=== PATIENT | male | born 1965 | race Two or more races ===

== ENCOUNTER 2023-03-03 02:01 | Inpatient (IN) | payer MEDICAID ==
[2023-03-03] VITALS (30 sets, daily range): BP systolic 77–177; BP diastolic 61–104; TEMP 98.4–100.1; O2SAT 91–100
[~2023-03-03] VITALS: Ht 167.6 cm; Wt 62.1 kg
--- NOTE | 2023-03-03 02:06 | NUR ---
BIBRA39 FROM AN APT BLDG FOUND BY ROOM MATE UNRESPONSIVE, SATTING 89% IN ROOM AIR, BS 198, APPEARS SHALLOW, ST ON EKG WITH HR 115. PT CAME WITH IV LINE AT RAC 18G, PATENT AND FLUSHING WELL. PT ATTACHED TO MONITOR AND PULSE OX. PT PLACED ON HIGH COREY'S, DR TAPIA AND RT AT BEDSIDE.
[2023-03-03] MEDS ORDERED: IOHEXOL-350 100 ML VIAL IV ONE (02:09)
[2023-03-03] MEDS ORDERED: CT SWABBABLE VALVE TRANS SET 1 EA INFUS.SET MC ONE (02:09)
[2023-03-03] MEDS ORDERED: IV NS 0.9% 250 ML IV ONE (02:09)
[2023-03-03] MEDS ORDERED: IOHEXOL-300 100 ML VIAL IV ONE (02:09)
--- NOTE | 2023-03-03 02:16 | NUR ---
PATIENT TAKEN TO CT VIA FLORECITA
[2023-03-03 03:17] LABS: BASOPHILS % (AUTO) 0.1 % (0.0-2.0); HEMATOCRIT 39 % (39-51); HEMOGLOBIN 12.7 g/dL (13.5-17.5); LYMPHOCYTES # (AUTO) 0.9 K/uL (0.8-4.8); LYMPHOCYTES % (AUTO) 5.1 % (20.0-44.0); MEAN CORPUSCULAR HGB CONC 33 g/dl (31.0-36.0); MEAN CORPUSCULAR VOLUME 94 fL (80-96); MONOCYTES # (AUTO) 0.7 K/uL (0.1-1.30); MONOCYTES % (AUTO) 4.2 % (2.0-12.0); NEUTROPHILS # (AUTO) 15.2 K/uL (1.8-8.9); NEUTROPHILS % (AUTO) 90.6 % (43.0-81.0); PLATELET COUNT (AUTO) 199 K/uL (150-450); RED BLOOD CELL COUNT(AUTO) 4.14 MIL/uL (4.5-6.0); WHITE BLOOD COUNT (AUTO) 16.8 K/uL (4.3-11.0)
[2023-03-03 03:22] LABS: BILIRUBIN,URINE NEGATIVE (NEGATIVE); COLOR,URINE YELLOW (YELLOW); LEUKOCYTE ESTERASE ,URINE NEGATIVE (NEGATIVE); NITRITE, URINE NEGATIVE (NEGATIVE); PROTEIN,URINE NEGATIVE (NEGATIVE); UGLUCOSE NEGATIVE (NEGATIVE); UROBILINOGEN,URINE 0.2 EU/dL (0.2)
[2023-03-03 03:27] LABS: CALCIUM, SERUM 8.7 mg/dL (8.5-10.1); CARBON DIOXIDE 24 mmol/L (21-32); CHLORIDE 109 mmol/L (98-107); CREATININE 1.5 mg/dL (0.6-1.3); GLUCOSE 175 mg/dL (74-106); POTASSIUM 4.3 mmol/L (3.5-5.1); SODIUM SERUM 141 mmol/L (136-145); UREA NITROGEN, BLOOD 26 mg/dL (7-18)
[2023-03-03 03:35] LABS: BACTERIA,URINE Few /HPF (None Seen); RBC,URINE 0-2 /HPF (0-2); SQUAMOUS EPITHELIAL CELL,UR None Seen /HPF (None Seen); WBC,URINE 0-2 /HPF (0-3)
[2023-03-03 03:41] LABS: ALANINE AMINOTRANSFERASE 33 U/L (12-78); ALBUMIN 2.7 g/dL (3.4-5.0); ALKALINE PHOSPHATASE 50 U/L (46-116); ASPARTATE AMINOTRANSFERASE 23 U/L (15-37); BILIRUBIN,DIRECT 0.2 mg/dL (0.0-0.2); BILIRUBIN,TOTAL 0.8 mg/dL (0.2-1.0); TOTAL PROTEIN, SERUM 6.5 g/dL (6.4-8.2)
--- NOTE | 2023-03-03 03:43 | NUR ---
CRITICAL RESULT RECEIVED FROM [facility]I OF LAB. LACTIC ACID 5.2. DR TAPIA AWARE. WITH ORDERS TO BE CARRIED OUT
--- NOTE | 2023-03-03 03:46 | NUR ---
RECEIVED CRITICAL REPORT FROM CHRISTI. PT PRO CALCITONIN IS 13.9. MADE AWARE
[2023-03-03] MEDS ORDERED: VANCOMYCIN 1 GM /D5W 250 ML PB IV ONE (03:50)
[2023-03-03] MEDS ORDERED: PIPERACI/TAZO 3.375GM/D5W 50ML PB IV ONE (03:51)
[2023-03-03] MEDS ORDERED: VANCOMYCIN 1 GM in IV D5W 250 ML IV ONE (04:00)
[2023-03-03] MEDS ORDERED: PIPERACILLIN /TAZOBACTAM 3.375 G in IV D5W 50 ML IV ONE (04:00)
[2023-03-03] MEDS ORDERED: IV NS 0.9% 1,000 ML IV PRN ×2 (04:00)
[2023-03-03] MEDS ORDERED: ENOXAPARIN SODIUM 100 MG/ML DISP.SYRIN SQ ONE (04:14)
[2023-03-03] MEDS ORDERED: ONDANSETRON HCL/PF 4 MG/2 ML VIAL IVP PRN (04:30)
[2023-03-03] MEDS ORDERED: MAGNESIUM HYDROXIDE 30 ML UDC PO PRN (04:30)
[2023-03-03] MEDS ORDERED: ENOXAPARIN SODIUM 60 MG/0.6 ML DISP.SYRIN SQ ONE (04:30)
[2023-03-03] MEDS ORDERED: MAG HYDROX/AL HYDROX/SIMETH 30 ML UDC PO PRN (04:30)
[2023-03-03] MEDS ORDERED: ZOLPIDEM TARTRATE 5 MG TABLET PO PRN (04:30)
[2023-03-03] MEDS ORDERED: Z GUARD REMEDY 4 OZ OINT TP PRN (04:30)
[2023-03-03] MEDS: IV D5/0.45 NACL 1,000 ML IV PRN ×2 (05:27→09:36)
[2023-03-03 05:39] LABS: ALCOHOL, BLOOD < 10 mg/dL (0-10)
[2023-03-03 05:50] LABS: SERUM AMMONIA 21 umol/L (11-32)
--- NOTE | 2023-03-03 07:21 | NUR ---
HANDOFF GIVEN TO CAMILLE RAPP.
--- NOTE | 2023-03-03 07:53 | NUR ---
RECIEVED BED FROM NURSING [facility] [address] LIGHT ROOM 256. ATTEMPTED TO GIVEN HAND OFF REPORT TO ICU. NURSE IS UNAVALIABLE. WILL REATTEMPT IN 5 MINUTES.
--- NOTE | 2023-03-03 08:29 | NUR ---
HAND OFF REPORT GIVEN TO DIONTE DENNIS IN ICU.
--- NOTE | 2023-03-03 09:06 | NUR ---
PATIENT TRANSFERRED TO ICU BED 256 PER ACLS PROTOCOL
[2023-03-03] MEDS: PANTOPRAZOLE 40 MG VIAL IV SCH (09:39)
--- NOTE | 2023-03-03 09:45 | NUR ---
PATIENT ADMITTED FROM ER WITH DIAGNOSIS OF EXTENSIVE BILATERAL PULMONARY EMBOLISM. PATIENT EXTREMELY RESTLESS UPON ADMISSION, MOVING BLE CONTINUOUSLY, MAKING LOUD NOISES, UNABLE TO FOLLOW SIMPLE COMMANDS. ON 100% NRBM-ST 140'S ON MONITOR. EVIDENCE OF VOMITUS ALL OVER MOUTH/CHEST AREA. TRANSFERRED FROM [facility] TO BED, REMAINS RESTLESS ALL OVER BED, O2 MASK KEPT INPLACED, ATTEMPTS TO POSITION COMFORTABLE IN BED TO NO AVAIL. REMAINS AGITATED, BILATERAL WRIST RESTRAINTS APPLIED TO KEEP MEDICAL DEVICES INPLACE. INDWELLING FC INSERTED WITH YELLOW URINE RETURN.
--- NOTE | 2023-03-03 10:35 | NUR ---
PATIENT INCREASINGLY AGITATED. MAKING LOUD NOISES. NOT FOLLOWING ANY SIMPLE COMMANDS.100% NRBM- SPO2 96%. ST 170'S. SPOKE TO DR. GTZ RE: PATIENT CONDITION. SATED TO BE HERE SHORTLY TO EVAL PATIENT.
[2023-03-03] MEDS ORDERED: LORAZEPAM INJ 2 MG/ML VIAL IV ONE (11:00)
[2023-03-03] MEDS ORDERED: HALOPERIDOL LACTATE INJ 5 MG/ML VIAL IM ONE (11:00)
--- NOTE | 2023-03-03 11:00 | NUR ---
ONGOING MD EVALUATION WITH DR. GTZ/ ER MD -DR. CONNOR. ATIVAN 2 MG IVP/HALDOL 5 MG IM STAT GIVEN FOR SEVERE AGITATION/RESTLESSNESS/ INCREASED HR 180'S.
--- NOTE | 2023-03-03 11:15 | NUR ---
PATIENT STARTED TO DESAT TO 80'S, ER MD STILL AT BEDSIDE WITH DR. GTZ, DECISIONON MADE TO INTUBATE PATIENT AT THIS POINT. RAPID SEQUENCE INTUBATION DONE SUCCESSFULLY ON 1ST ATTEMPT BY ER MD. CONNECTED TO FULL VENT SUPPORT.
[2023-03-03 11:26] LABS: ABG BASE EXCESS -8.1 mmol/L; ABG OXYGEN SATURATION 96.9 % (92.0-98.5); ABG PCO2 57.8 mmHg (35.0-45.0); ABG PH 7.176 (7.350-7.450); COHb 0.5 % (0.5-1.5); MetHb 0.6 % (0.0-1.5); O2Hb 95.8 % (94.0-97.0); SITE, ABG Right Radial; VENT MODE, BG NRB @15L
--- NOTE | 2023-03-03 11:35 | NUR ---
DR. ALFRED AT BEDSIDE FOR PULMO CONSULT.
[2023-03-03] MEDS: ZOSYN IVPB 3.375 G in IV D5W 50ml IV SCH ×2 (11:43→17:06)
--- NOTE | 2023-03-03 11:45 | NUR ---
OBTAINED ORDERS FROM DR. ALFRED FOR NS 2L BOLUS FOLLOWED BY 200 MLS/HR.
[2023-03-03] MEDS ORDERED: IV NS 0.9% 1,000 ML IV ONE ×2 (12:00→13:00)
[2023-03-03] MEDS: PROPOFOL 100 ML IV PRN ×2 (12:00→21:24)
--- NOTE | 2023-03-03 12:00 | NUR ---
PATIENT ARRIVED FROM ER VIA GURNEY ON NON REBREATHER MASK 10 L, O2 SATURATION BETWEEN 86-96 FLUCTUATING, PATIENT SO AGITATED AND RESTLESS, ACUTE MEDICAL RESTRAINS SOFT BILATERAL WRIST APPLIED FOR PATIENT'S SAFETY UNDER DR. GTZ'S ORDER. PATIENT STARTED DESATURATING TO 74% DR. ULISSES KAPADIAN DR. HAYES NOTIFIED THEY DECIDED TO INTUBATE THE PATIENT. PULMONARY PUT PATIENT ON SEDATION. PATIENT'S SKIN INTACT, PATIENT WAS NONRESPONSIVE BEFORE INTUBATION A/O X0. WILL MONITOR THE PATIENT THROUGHOUT THE SHIFT.
--- NOTE | 2023-03-03 12:00 | NUR ---
REMAINS TACHYCARDIC 140'S, OVERBREATHING VENT SET RATE, DIPRIVAN DRIP STARTED PER PROTOCOL.
[2023-03-03 12:01] LABS: BASOPHILS % (AUTO) 0.3 % (0.0-2.0); HEMATOCRIT 38 % (39-51); HEMOGLOBIN 12.4 g/dL (13.5-17.5); LYMPHOCYTES % (AUTO) 7.4 % (20.0-44.0); MEAN CORPUSCULAR HGB CONC 32 g/dl (31.0-36.0); MEAN CORPUSCULAR VOLUME 94 fL (80-96); MONOCYTES # (AUTO) 0.6 K/uL (0.1-1.30); MONOCYTES % (AUTO) 4.8 % (2.0-12.0); NEUTROPHILS # (AUTO) 11.6 K/uL (1.8-8.9); NEUTROPHILS % (AUTO) 87.5 % (43.0-81.0); PLATELET COUNT (AUTO) 184 K/uL (150-450); RED BLOOD CELL COUNT(AUTO) 4.06 MIL/uL (4.5-6.0); WHITE BLOOD COUNT (AUTO) 13.3 K/uL (4.3-11.0)
[2023-03-03] MEDS: IV NS 0.9% 1,000 ML IV PRN ×2 (13:40→19:23)
--- NOTE | 2023-03-03 14:00 | NUR ---
PATIENT'S SISTER IN LAW, SON, NIECE, AND HIS AUNT CAME TO VISIT THE PATIENT, THEY HAD A HARD TIME FINDING THE PATIENT BECAUSE HIS ROOMMATE GAVE PATIENT'S STEVEN NAME GUZMAN EVANS TO THE ER. PATIENT'S REAL NAME IS JOSSELIN ELLISON. PATIENT'S FAMILY TOOK PUT PATIENT'S DIRTY CLOTHS IN THE TRASH AND BROUGHT SOME NEW CLOTHS WHICH ARE DOCUMENTED IN THE BELONGINGS LIST AND PLACED IN PATIENT'S CHART.
[2023-03-03] MEDS ORDERED: SUCCINYLCHOLINE CHLORIDE 20 MG/ML VIAL IV ONE (14:44)
[2023-03-03] MEDS ORDERED: ETOMIDATE 2 MG/ML VIAL IV ONE (14:44)
[2023-03-03] MEDS: VANCOMYCIN 1 GM in IV D5W 250 ML IV SCH (15:48)
[2023-03-03] MEDS ORDERED: ENOXAPARIN SODIUM 60 MG/0.6 ML DISP.SYRIN SQ SCH ×2 (18:00→21:00)
--- NOTE | 2023-03-03 18:00 | NUR ---
SBP NOTED CONSISTENTLY LOW. OBTAINED ORDERS FROM DR. GTZ FOR CARLOS GTT FOR BP SUPPORT.
[2023-03-03] MEDS: PHENYLEPHRINE 50 MG in IV NS 0.9% 245 ML IV PRN (18:14)
--- NOTE | 2023-03-03 18:42 | NUR ---
RAMAN RN CLOSING NOTE PATIENT SEDATED AND INTUBATED IN BED WITH OXYGEN SATURATION 99% HOB 30 TO 40 DEGREE UP. BILATERAL SOFT WRIST RESTRAIN RENEW TOMORROW MORNING 1000 AM. PATIENT HAS ANGEL INSERTED IN THE MORNING AT 10AM DRAINING THERESA LOOKING URINE. SKIN INTACT, PATIENT ON NEOSY 0.5 MCG DUE TO LOW BP 75/63 STARTED AT 1800. ALSO ON PROPOFOL RATE 20 FOR SEDATION. ALL SAFETY PRECAUTIONS IMPLEMENTED AND PATIENT KEPT CLEAN AND DRY. WILL ENDORSE THE PATIENT TO THE METER TESTER PRIMARY NURSE FOR LORRAINE.
--- NOTE | 2023-03-03 20:13 | NUR ---
TOOL GRINDER OPERATOR EXTERNAL OPENING NOTE PT RECEIVED IN BED, SEDATED. PT WITH ETT SIZE 7.5, MARKED 23 CM AT THE LIP WITH SETTING OF AC 20, TV 500, FIO2 40%, PEEP 5 WITH CURRENT O2SAT OF 99%; NO S/S OF RESP DISTRESS, NO SOB, NON-LABORED AND EQUAL BREATHING; COUGH AND GAG REFLEX PRESENT. PT ATTACHED TO BEDSIDE MONITOR, ST WITH HR OF 125. ANGEL INTACT AND PATENT, DRAINING CLOUDY AND YELLOW URINE. BILATERAL SOFT WRIST RESTRAINTS IN PLACE WITH NO SIGNS OF IMPAIRED SKIN OR CIRCULATION. IV ACCESS ON LEFT WRIST 20G AND RAC 18G WITH PROPOFOL AT 20 MCG/KG/MIN, CARLOS NOW AT 0.4 MCG/KG/MIN AND NS AT 200 ML/HR. BED IN LOWEST POSITION, CALL LIGHT WITHIN REACH, SIDE RAILS UP X3. WILL CONTINUE TO MONITOR THROUGHOUT THE NIGHT.
[2023-03-03] MEDS: ENOXAPARIN SODIUM 60 MG/0.6 ML DISP.SYRIN SQ SCH (20:23)
[2023-03-04] VITALS (96 sets, daily range): BP systolic 77–149; BP diastolic 56–94; TEMP 96.5–99.7; O2SAT 95–100
[2023-03-04] MEDS: IV NS 0.9% 1,000 ML IV PRN ×2 (00:26→06:17)
[2023-03-04] MEDS: ZOSYN IVPB 3.375 G in IV D5W 50ml IV SCH ×5 (00:47→23:22)
[2023-03-04] MEDS: PROPOFOL 100 ML IV PRN ×4 (03:14→22:35)
[2023-03-04] MEDS: VANCOMYCIN 1 GM in IV D5W 250 ML IV SCH ×2 (03:44→16:09)
[2023-03-04 05:24] LABS: ABG OXYGEN SATURATION 97.2 % (92.0-98.5); ABG PCO2 29.8 mmHg (35.0-45.0); ABG PH 7.411 (7.350-7.450); ABG PO2 97.3 mmHg (75.0-100.0); AaDO2 153.6 mmHg; COHb 0.3 % (0.5-1.5); MetHb 0.2 % (0.0-1.5); O2Hb 96.7 % (94.0-97.0); SITE, ABG Right Radial
[2023-03-04 05:49] LABS: BASOPHILS % (AUTO) 0.4 % (0.0-2.0); EOSINOPHILS % (AUTO) 0.2 % (0.0-6.0); HEMATOCRIT 33 % (39-51); HEMOGLOBIN 10.8 g/dL (13.5-17.5); LYMPHOCYTES # (AUTO) 1.4 K/uL (0.8-4.8); LYMPHOCYTES % (AUTO) 12.6 % (20.0-44.0); MEAN CORPUSCULAR HGB CONC 33 g/dl (31.0-36.0); MEAN CORPUSCULAR VOLUME 94 fL (80-96); MONOCYTES # (AUTO) 0.5 K/uL (0.1-1.30); MONOCYTES % (AUTO) 4.7 % (2.0-12.0); NEUTROPHILS # (AUTO) 9.3 K/uL (1.8-8.9); NEUTROPHILS % (AUTO) 82.1 % (43.0-81.0); PLATELET COUNT (AUTO) 151 K/uL (150-450); RED BLOOD CELL COUNT(AUTO) 3.49 MIL/uL (4.5-6.0); WHITE BLOOD COUNT (AUTO) 11.3 K/uL (4.3-11.0)
[2023-03-04 05:59] LABS: CALCIUM, SERUM 7.7 mg/dL (8.5-10.1); CREATININE 0.9 mg/dL (0.6-1.3); PHOSPHORUS 1.4 mg/dL (2.5-4.9); POTASSIUM 3.7 mmol/L (3.5-5.1)
[2023-03-04 06:22] LABS: THYROID STIMULATING HORMONE 2.181 uIU/mL (0.358-3.74)
--- NOTE | 2023-03-04 06:59 | NUR ---
CENTRIFUGAL DRIER OPERATOR CLOSING NOTE PT REMAINS IN BED, SEDATED. CONTINUES TO BE ON SAME VENT SETTINGS; TOLERATING WELL WITH O2SAT RANGING FROM 98%-100% WITH NO S/S OF RESP DISTRESS, NO SOB, NON-LABORED AND EQUAL BREATHING. ATTACHED TO BEDSIDE MONITOR ST DURING BEGINNING OF SHIFT, NOW SR WITH HR IN THE 70S. ANGEL INTACT AND PATENT, DRAINING CLOUDY AND THERESA URINE. BILATERAL SOFT WRIST RESTRAINTS REMAIN IN PLACE; NO S/S OF IMPAIRED SKIN OR CIRCULATION; PROVIDED RELEASE OF RESTRAINTS AND HYGIENE. IV ACCESS LEFT WRIST 20G AND RAC 18G, PROPOFOL AT 35 MCG/KG/MIN, CARLOS AT 1 MCG/KG/MIN, AND NS AT 200 ML/HR. ALL DUE MEDS ADMINISTERED DURING THE NIGHT. BED IN LOWEST POSITION, CALL LIGHT WITHIN REACH, SIDE RAILS UP X3. WILL ENDORSE TO DAYSHIFT NURSE TO CONTINUE CARE.
[2023-03-04] MEDS ORDERED: POTASSIUM PHOSPHATE MM 15 MMOL in IV NS 0.9% 250 ML IV SCH (08:00)
--- NOTE | 2023-03-04 08:33 | NUR ---
RN NOTES NOTIFIED BOTH DR. GARSIA AND ULISSES THAT I RECEIVED CRITICAL LAB VALUE OF TROPONIN AT 1183 THIS MORNING UP FROM 182 FROM LAST NIGHT.
[2023-03-04] MEDS: IV LR 1000 ML 1,000 ML IV PRN ×2 (08:42→18:20)
[2023-03-04] MEDS: PANTOPRAZOLE 40 MG VIAL IV SCH (08:42)
[2023-03-04] MEDS: ENOXAPARIN SODIUM 60 MG/0.6 ML DISP.SYRIN SQ SCH ×2 (08:44→20:40)
[2023-03-04] MEDS: PHENYLEPHRINE 50 MG in IV NS 0.9% 245 ML IV PRN ×2 (11:17→22:01)
[2023-03-04] MEDS ORDERED: Sodium Phosphate 30 MMOL in IV NS 0.9% 250 ML IV ONE (13:00)
[2023-03-04] MEDS ORDERED: LORA-259 PO (16:12)
[2023-03-04] MEDS ORDERED: PREG50CA PO (16:12)
[2023-03-04] MEDS ORDERED: TRIH2TAB3 PO (16:12)
[2023-03-04] MEDS ORDERED: GABA-536 PO (16:12)
[2023-03-04] MEDS ORDERED: BUPR1PAT21 TD (16:12)
[2023-03-04] MEDS ORDERED: TIZA4TAB5 PO (16:12)
[2023-03-04] MEDS ORDERED: BACL20TA PO (16:12)
[2023-03-04] MEDS ORDERED: ATOR20TA PO (16:12)
--- NOTE | 2023-03-04 19:13 | NUR ---
RN NOTES PT LOOKS COMFORTABLE, NO VISUAL SIGNS OF PAIN, ALL DUE MEDS GIVEN. STILL ON DIPRIVAN AT RATE OF 35 MCG/KG/HR, CARLOS AT 1 MCG/KG/HR AND INTUBATED. NO ISSUES AT THIS TIME. REPORT GIVEN TO PRINCESS RAPP FOR CONTINUATION OF CARE.
--- NOTE | 2023-03-04 20:00 | NUR ---
TANK TERMINAL GAUGER OPENING NOTE PT RECEIVED IN BED, SEDATED. PT WITH ETT SIZE 7.5, MARKED 23 CM AT THE LIP, AC 20, TV 500, FIO2 30%, PEEP 5 WITH CURRENT O2SAT OF 99%; NO S/S OF RESP DISTRESS, NO SOB, NON-LABORED AND EQUAL BREATHING. PT ATTACHED TO BEDSIDE MONITOR, SR WITH HR OF 84. ANGEL INTACT AND PATENT, DRAINING CLOUDY AND THERESA URINE. BILATERAL SOFT WRIST RESTRAINTS IN PLACE; NO SIGNS OF IMPAIRED SKIN OR CIRCULATION. IV ACCESS ON LEFT WRIST 20G AND RAC 18G, PROPOFOL AT 30 MCG/KG/MIN, CARLOS AT 1.2 MCG/KG/MIN, AND LR AT 100 ML/HR. BED IN LOWEST POSITION, CALL LIGHT WITHIN REACH, SIDE RAILS UP X3. WILL CONTINUE TO MONITOR THROUGHOUT THE NIGHT.
--- NOTE | 2023-03-04 20:02 | NUR ---
RT AT BEDSIDE, COLLECTED SPECIMEN FOR SPUTUM CULTURE. LAB CALLED FOR CURATOR OF COLLECTIONS.
--- NOTE | 2023-03-04 21:18 | NUR ---
RN NOTE RECEIVED CRITICAL FROM LAB. BLOOD CULTURE RESULTED IN GRAM POSITIVE IN COCCI. BUDDY BUENROSTRO NOTIFIED ALONG WITH CURRENT ABX PT IS RECEIVING. NO NEW ORDERS RECEIVED
[2023-03-05] VITALS (65 sets, daily range): BP systolic 86–154; BP diastolic 64–92; TEMP 96.1–99.1; O2SAT 92–100
[2023-03-05] MEDS: VANCOMYCIN 1 GM in IV D5W 250ml IV SCH ×3 (00:47→16:55)
[2023-03-05 04:21] LABS: BASOPHILS # (AUTO) 0.1 K/uL (0.0-0.2); BASOPHILS % (AUTO) 0.6 % (0.0-2.0); EOSINOPHILS % (AUTO) 1.8 % (0.0-6.0); HEMATOCRIT 30 % (39-51); LYMPHOCYTES # (AUTO) 1.3 K/uL (0.8-4.8); LYMPHOCYTES % (AUTO) 12.7 % (20.0-44.0); MEAN CORPUSCULAR HGB CONC 33 g/dl (31.0-36.0); MEAN CORPUSCULAR VOLUME 93 fL (80-96); MONOCYTES # (AUTO) 0.6 K/uL (0.1-1.30); MONOCYTES % (AUTO) 6.2 % (2.0-12.0); NEUTROPHILS % (AUTO) 78.7 % (43.0-81.0); PLATELET COUNT (AUTO) 147 K/uL (150-450); RED BLOOD CELL COUNT(AUTO) 3.23 MIL/uL (4.5-6.0); WHITE BLOOD COUNT (AUTO) 10.2 K/uL (4.3-11.0)
[2023-03-05 04:34] LABS: CALCIUM, SERUM 7.7 mg/dL (8.5-10.1); CREATININE 0.7 mg/dL (0.6-1.3); POTASSIUM 3.2 mmol/L (3.5-5.1)
[2023-03-05] MEDS: PROPOFOL 100 ML IV PRN ×4 (05:10→23:09)
[2023-03-05] MEDS: IV LR 1000 ML 1,000 ML IV PRN ×2 (05:20→17:02)
[2023-03-05] MEDS: ZOSYN IVPB 3.375 G in IV D5W 50ml IV SCH ×4 (05:58→23:01)
--- NOTE | 2023-03-05 06:41 | NUR ---
AEROSPACE QUALITY ENGINEER CLOSING NOTE PT REMAINS IN BED, SEDATED. CONTINUES TO BE ON SAME VENT SETTINGS, TOLERATING WELL WITH O2SAT RANGING FROM 95%-100%; NO S/S OF RESP DISTRESS, NO SOB, NON-LABORED AND EQUAL BREATHING. ATTACHED TO BEDSIDE MONITOR, SR WITH HR RANGING FROM 62-87. ANGEL INTACT AND PATENT, DRAINING THERESA AND CLOUDY URINE. BILATERAL SOFT WRIST RESTRAINTS REMAIN IN PLACE; PROVIDED PT WITH RELEASE OF RESTRAINTS AND HYGIENE; NO SIGNS OF IMPAIRED SKIN OR CIRCULATION. LEFT WRIST 20G AND RAC 18G; PROPOFOL AT 30 MCG/KG/MIN, CARLOS AT 1.0 MCG/KG/MIN, AND LR AT 100 ML/HR. ALL DUE MEDS ADMINISTERED DURING THE NIGHT. BED IN LOWEST POSITION, CALL LIGHT WITHIN REACH, SIDE RAILS UP X3. WILL ENDORSE TO DAYSHIFT NURSE TO CONTINUE CARE.
--- NOTE | 2023-03-05 07:50 | NUR ---
RT PATIENT REC'D ORALLY INTUBATED ON [facility] VENT WITH ORDERED SETTINGS GRANT WELL. NO WEANING ORDERS FOR PATIENT. SEDATION TURNED OFF AND PATIENT COULD NOT FOLLOW COMMANDS AND RR INCREASED TO HIGH 30'S. PLACED BACK ON SEDATION. ETT SECURE AND PATENT. AMBU BAG AT [facility]. VENT ALARMS CHECKED + AUDIBLE. Addendum: 03/05/23 at 1758 by YVETTE RIOJAS RT Amended: Links added.
[2023-03-05] MEDS: PANTOPRAZOLE 40 MG VIAL IV SCH (08:41)
[2023-03-05] MEDS: ENOXAPARIN SODIUM 60 MG/0.6 ML DISP.SYRIN SQ SCH ×2 (08:57→20:21)
[2023-03-05] MEDS: POTASSIUM CL. PREMIX PERIPHER. 50 ML IV SCH ×4 (10:49→15:55)
--- NOTE | 2023-03-05 19:05 | NUR ---
RN CLOSING NOTES PATIENT LOOKS COMFORTABLE, NO VISUAL SIGNS OF PAIN, ALL DUE MEDS GIVEN. PATIENT STILL ON DIPRIVAN AT 35 MCG/KG/HR, BUT OFF CARLOS. ATTEMPTED TO EXTUBATE PATIENT TODAY, BUT PATIENT UNABLE TO FOLLOW COMMANDS OR TRACK MOVEMENT. REPORT GIVEN TO ANGY RAPP FOR CONTINUATION OF CARE.
--- NOTE | 2023-03-05 19:30 | NUR ---
PT SEDATED. ON [facility] VENT SEETINGS PRESCRIBED, TOLERATING WELL. SHOWING SR ON CENTRAL PROCESSING TECHNICIAN. ON NPO STATUS. ANGEL CATHETER IN PLACE. IV ACCESS ON LT WRIST # 20G, RAC #18G INFUSING LR @ 100ML/HR AND DIPRIVAN TITRATED PER PROTOCOL. SAFETY MEASURES IN PLACE. HOB ELEVATED. WILL CONTINUE PLAN OF CARE.
[2023-03-06] VITALS (43 sets, daily range): BP systolic 88–173; BP diastolic 65–94; TEMP 96.7–99.8; O2SAT 94–100
[2023-03-06] MEDS: VANCOMYCIN 1 GM in IV D5W 250ml IV SCH ×2
[2023-03-06 04:59] LABS: BASOPHILS % (AUTO) 0.4 % (0.0-2.0); HEMATOCRIT 33 % (39-51); HEMOGLOBIN 10.7 g/dL (13.5-17.5); LYMPHOCYTES # (AUTO) 1.2 K/uL (0.8-4.8); MEAN CORPUSCULAR HGB CONC 32 g/dl (31.0-36.0); MEAN CORPUSCULAR VOLUME 100 fL (80-96); MONOCYTES # (AUTO) 0.5 K/uL (0.1-1.30); MONOCYTES % (AUTO) 8.1 % (2.0-12.0); NEUTROPHILS # (AUTO) 4.8 K/uL (1.8-8.9); NEUTROPHILS % (AUTO) 70.5 % (43.0-81.0); PLATELET COUNT (AUTO) 143 K/uL (150-450); RED BLOOD CELL COUNT(AUTO) 3.33 MIL/uL (4.5-6.0); WHITE BLOOD COUNT (AUTO) 6.8 K/uL (4.3-11.0)
[2023-03-06] MEDS: IV LR 1000 ML 1,000 ML IV PRN ×2 (05:01→19:11)
[2023-03-06] MEDS: PROPOFOL 100 ML IV PRN ×3 (05:02→18:44)
[2023-03-06 05:09] LABS: CREATININE 0.9 mg/dL (0.6-1.3); POTASSIUM 3.5 mmol/L (3.5-5.1)
[2023-03-06] MEDS: ZOSYN IVPB 3.375 G in IV D5W 50ml IV SCH ×4 (05:38→23:00)
--- NOTE | 2023-03-06 07:10 | NUR ---
HAND OVER REPORT GIVEN TO WENDY RAPP FOR CONTINUITY OF CARE.
--- NOTE | 2023-03-06 08:00 | NUR ---
RN NOTES SEDATION VACATION STARTED FOR PATIENT.
--- NOTE | 2023-03-06 08:05 | NUR ---
RN NOTES NOTIFIED PHARMACY THAT LATEST VANCO THROUGH IS AT 21. PHARMACIST AWARE AND WILL LOWER DOSE TO BE GIVEN.
[2023-03-06] MEDS: PANTOPRAZOLE 40 MG VIAL IV SCH (08:10)
[2023-03-06] MEDS: ENOXAPARIN SODIUM 60 MG/0.6 ML DISP.SYRIN SQ SCH ×2 (08:11→21:15)
[2023-03-06] MEDS: VANCOMYCIN HCL 0.75 GM in IV D5W 250 ML IV SCH ×2 (09:27→16:28)
[2023-03-06] MEDS ORDERED: BUMETANIDE INJ 0.25 MG/ML VIAL IV ONE (19:00)
[2023-03-07] VITALS (33 sets, daily range): BP systolic 118–168; BP diastolic 76–103; TEMP 98–99.1; O2SAT 95–100
[2023-03-07] MEDS: PROPOFOL 100 ML IV PRN ×3 (01:00→10:42)
[2023-03-07] MEDS: hydrALAZINE HCL IV 20 MG VIAL IV PRN (03:59)
[2023-03-07 04:14] LABS: BASOPHILS % (AUTO) 0.5 % (0.0-2.0); EOSINOPHILS % (AUTO) 4.3 % (0.0-6.0); HEMATOCRIT 31 % (39-51); HEMOGLOBIN 10.4 g/dL (13.5-17.5); LYMPHOCYTES % (AUTO) 13.4 % (20.0-44.0); MEAN CORPUSCULAR HGB CONC 34 g/dl (31.0-36.0); MEAN CORPUSCULAR VOLUME 92 fL (80-96); MONOCYTES # (AUTO) 0.6 K/uL (0.1-1.30); MONOCYTES % (AUTO) 8.1 % (2.0-12.0); NEUTROPHILS # (AUTO) 5.5 K/uL (1.8-8.9); NEUTROPHILS % (AUTO) 73.7 % (43.0-81.0); PLATELET COUNT (AUTO) 171 K/uL (150-450); RED BLOOD CELL COUNT(AUTO) 3.34 MIL/uL (4.5-6.0); WHITE BLOOD COUNT (AUTO) 7.5 K/uL (4.3-11.0)
[2023-03-07 04:27] LABS: CALCIUM, SERUM 8.2 mg/dL (8.5-10.1)
[2023-03-07 04:31] LABS: POTASSIUM 2.7 mmol/L (3.5-5.1)
[2023-03-07] MEDS: ZOSYN IVPB 3.375 G in IV D5W 50ml IV SCH (05:02)
[2023-03-07 05:06] LABS: ABG BASE EXCESS -0.4 mmol/L; ABG OXYGEN SATURATION 93.8 % (92.0-98.5); ABG PCO2 24.6 mmHg (35.0-45.0); ABG PH 7.545 (7.350-7.450); ABG PO2 67.3 mmHg (75.0-100.0); AaDO2 117.7 mmHg; COHb 0.2 % (0.5-1.5); MetHb 0.2 % (0.0-1.5); O2Hb 93.4 % (94.0-97.0); PEEP,BG 5 cm H2O; SITE, ABG Right Radial
[2023-03-07] MEDS: POTASSIUM CL. PREMIX PERIPHER. 50 ML IV SCH ×6 (06:00→11:10)
--- NOTE | 2023-03-07 07:05 | NUR ---
MECHANICAL ENGINEERING COOP NOTE Patient is intubated and sedated. GCS [id number], sedated by propofol at 45mcg/kg/min, bilateral pupils 3mm PEARLA. telemetry monitor showed SR HR 60s/min. SBP>90mmHg and MAP>65mmHg without vasopressor use. Intubated by size 7.5 ETT, marking at lip 23 cm. Ventilated by AC mode rate 20, TV 500mL, SpO2 >90% with FiO2 30%. Right AC is dry and intact, patent upon flush, with propofol running. Left hand IV site is dry and intact, patent with NS flush. Bilateral hands circulation is good with restraints use. Suction, oral care and repositioning is done. Keep monitoring and care.
[2023-03-07] MEDS: PANTOPRAZOLE 40 MG VIAL IV SCH (09:06)
[2023-03-07] MEDS: VANCOMYCIN HCL 0.75 GM in IV D5W 250 ML IV SCH ×4 (09:08→17:22)
[2023-03-07] MEDS: ENOXAPARIN SODIUM 60 MG/0.6 ML DISP.SYRIN SQ SCH ×2 (09:15→20:31)
[2023-03-07 10:05] LABS: POTASSIUM 3.2 mmol/L (3.5-5.1)
--- NOTE | 2023-03-07 10:48 | NUR ---
PACK PRESS OPERATOR NOTE - Sedation vacation Reduced propofol sedation from 45 to 20mcg/kg/min since 10:00. Patient is awake and alert, with eye opening upon request. He is following commands and calm. monitoring and evaluation advisor showed SR HR 70/min, RR 21/min, BP ~155/90mmHg. Will continue observation for readiness to try weaning.
--- NOTE | 2023-03-07 11:25 | NUR ---
TUBE TELLER NOTE Called social media marketing manager but in vain for the request of document for family.
--- NOTE | 2023-03-07 12:24 | NUR ---
INDUSTRIAL TRUCK DRIVER NOTE - Plan for weaning TYE Hernandez came and visited patient, clnical condition updated with him. He ordered IV bumex to be given prior to weaning. Switched to CPAP mode with PS 10 mmHg. ABG 2 hours after mode switching. Would inform RT once bumex is given. Addendum: 03/07/23 at 1226 by SEE TIERNEY LANGE RN Also, TYE Hernandez would like propofol to be kept at 20 mcg/kg/min for weaning mode. Would monitor patient's respiratory status and neurlogical status accordingly.
[2023-03-07] MEDS ORDERED: BUMETANIDE INJ 0.25 MG/ML VIAL IV ONE (12:30)
--- NOTE | 2023-03-07 12:41 | NUR ---
PLANT CULTURE MANAGER NOTE Switched to CPAP mode at 12:30, with PS 15 cm H20, rate of 5/min. Fio2 30%
[2023-03-07] MEDS: PIPERACILLIN /TAZOBACTAM 3.375 G in IV D5W 100 ML IV SCH ×2 (13:53→20:30)
--- NOTE | 2023-03-07 14:16 | NUR ---
HARPOON ENGAGEMENT PLANNING OPERATOR NOTE Called neonatal social worker but in vain for the request of document for family. Voice message was left.
--- NOTE | 2023-03-07 15:41 | NUR ---
WELCOME WAGON HOST/HOSTESS Note - extubation 2 hours post CPAP ABG was taken at 15:15, showing good oxygenation. Stopped propofol at 15:25, would proceed for extubation 10 minutes afterwards, as ordered by TYE Hernandez. Suction was done by RT, extubated at 15:40. Spo2 100% with RR ~ 20/min with 6L oxygen via NC. Will continue monitoring.
--- NOTE | 2023-03-07 15:43 | NUR ---
PER DR. MCFARLAND ORDERED EXTUBATION BASED ON THE ABG RESULT. LEAK TEST PERFORMED AND WAS SUCTION BEFORE AND AFTER EXTUBATION. BILATERAL CHEST RISE NOTE WITH EQUAL BREATH SOUND NOTED. PATIENT PLACED ON 6 L O2 AFTER EXTUBATION WITH SAT OF 100%. PATIENT WILL CONTINUE TO BE MONITOR.. PATIENT PLACED OF CPAP MODE FOR 2 HOURS BEFORE THE ORDER FOR EXTUBATION. Addendum: 03/07/23 at 1549 by SAMMY BURROUGHS RT Amended: Links added.
[2023-03-07 16:12] LABS: ABG BASE EXCESS 0.3 mmol/L; ABG OXYGEN SATURATION 96.4 % (92.0-98.5); ABG PCO2 27.7 mmHg (35.0-45.0); ABG PO2 85.2 mmHg (75.0-100.0); AaDO2 96.2 mmHg; COHb 0.2 % (0.5-1.5); MetHb 0.3 % (0.0-1.5); O2Hb 95.9 % (94.0-97.0); PEEP,BG 5 cm H2O; SITE, ABG Left Femoral
[2023-03-07] MEDS: IV LR 1000 ML 1,000 ML IV PRN (17:29)
--- NOTE | 2023-03-07 18:54 | NUR ---
WASHER OPERATOR NOTE Patient's SpO2 >95% with 4L oxygen via NC, RR 25-30/min. color television console monitor showed SR all along HR 90s'/min.
[2023-03-08] VITALS (16 sets, daily range): BP systolic 123–160; BP diastolic 65–88; TEMP 98–98.8; O2SAT 94–100
[2023-03-08] MEDS: VANCOMYCIN HCL 0.75 GM in IV D5W 250 ML IV SCH ×3 (02:00→17:14)
[2023-03-08] MEDS: PIPERACILLIN /TAZOBACTAM 3.375 G in IV D5W 100 ML IV SCH ×3 (04:30→20:52)
[2023-03-08 04:50] LABS: CALCIUM, SERUM 8.3 mg/dL (8.5-10.1)
[2023-03-08 05:21] LABS: POTASSIUM 2.7 mmol/L (3.5-5.1)
[2023-03-08] MEDS: POTASSIUM CL. PREMIX PERIPHER. 50 ML IV SCH ×7 (05:59→11:06)
--- NOTE | 2023-03-08 06:20 | NUR ---
LAPPER NOTED BUE WARM TO TOUCH; NOTIFIED MD Riley/ORDERS FOR BUE US.
--- NOTE | 2023-03-08 07:35 | NUR ---
BRIAR CUTTER NOTE Patient is resting in bed without active complaint. GCS [id number], bilateral pupils 3mm PEARLA. desk monitor showed SR HR 82/min. SBP>90mmHg and MAP>65mmHg without vasopressor use. SpO2 >95% with 4L oxygen via NC. Right AC and right upper arm midline is dry and intact, patent upon flush. Left hand IV site is dry and intact, patent with NS flush. Bilateral hands circulation is good, strong pulsation but noted that arms are very warm, not tender upon touch. Repositioning is done. Keep monitoring and care.
[2023-03-08] MEDS: ENOXAPARIN SODIUM 60 MG/0.6 ML DISP.SYRIN SQ SCH (08:05)
[2023-03-08] MEDS: PANTOPRAZOLE 40 MG VIAL IV SCH (08:05)
--- NOTE | 2023-03-08 11:07 | NUR ---
YARD MOTOR OPERATOR NOTE Webster is removed. Await urination and would check PVRU accordingly.
--- NOTE | 2023-03-08 13:10 | NUR ---
ADMINISTRATIVE ASSOCIATE NOTE Patient is for transfer to telemetry unit. Handover was given to DIONTE Valverde for continuity of care. Patient's aunt accompanied patient to RAMAN 114-2.
--- NOTE | 2023-03-08 13:30 | NUR ---
CARDIOGRAPH OPERATOR NOTE Patient smith sfered from ICU .Alert , oriented times 3 , arabic speaking laboratory monitor showed SR HR 82/min. o2 sat 98 % on 4L oxygen via NC. Right AC and right upper arm midline is dry and intact,NS and Potasium Chloride running at 75 ml;/hrLeft hand IV site is dry and intact, patent with NS flush. Bilateral hands circulation is good,patient is on pure diet will continue to monitor
[2023-03-08] MEDS: ACETAMINOPHEN 325 MG TABLET PO PRN ×2 (13:45→20:50)
[2023-03-08] MEDS: Potassium Chloride 40 MEQ in IV NS 0.9% 1,000 ML IV SCH (17:14)
--- NOTE | 2023-03-08 19:13 | NUR ---
RN closing note Patient is Alert , oriented times 3 , [place] Citizen speaking library monitor showed SR HR 82/min. o2 sat 98 % on 4L oxygen via NC. Right AC and right upper arm midline is dry and intact,NS and Potasium Chloride running at 75 ml;/hr Left hand IV site is dry and intact, patent with NS flush. Bilateral hands circulation is good,patient is on pure diet . All medications were administred all needs were met , will endorse maintenance mechanic 2nd shift nurse to fallow poc
--- NOTE | 2023-03-08 20:00 | NUR ---
FOLDER SEAMER AUTOMATIC 0PENING note Patient is Alert , oriented times 3 , Singaporean speaking workforce staffing advisor showed SR HR 82/min. o2 sat 98 % on 2L oxygen via NC. Right AC and right upper arm midline is dry and intact,NS and Potasium Chloride running at 75 ml;/hr Left hand IV site is dry and intact, patent with NS flush. Bilateral hands circulation is good,patient is on pure diet . All due medications given as ordered all needs attended too call light within reach v/s stable afebrile no sob no distress noted ,will contkimnue to monitor pts.Son at bedside updated with pts condition.will continue to monitor pts.
[2023-03-08] MEDS: RIVAROXABAN 15 MG TABLET PO SCH (20:51)
[2023-03-09] VITALS: BP 141/90; TEMP 98.6; O2SAT 96
[2023-03-09] MEDS: VANCOMYCIN HCL 0.75 GM in IV D5W 250 ML IV SCH ×2 (01:43→08:20)
[2023-03-09 04:00] VITALS: BP 143/85; TEMP 98.6; O2SAT 93
[2023-03-09] MEDS: PIPERACILLIN /TAZOBACTAM 3.375 G in IV D5W 100 ML IV SCH (05:10)
--- NOTE | 2023-03-09 07:30 | NUR ---
RN NOTE RECEIVED PATIENT IN BED RESTING ALERT ORIENTEDX2-3 VERBALLY RESPONSIVE ON 2L OXYGEN VIA NASAL CANNULA,IV ACCESS ONE IKER AND RAC AND LEFT HAND INTACT PATENT ON IV HYDRATION NS WITH POTASSIUM CHLORIDE 70CC/HR INCONTINENT BOWEL/BLADDER SAFETY MEASURE IMPLEMENT BED IN LOW POSITION AND LOCKED CALL LIGHT,HEAD OF THE BED ELEVATED,CALL LIGHT WITHIN REACH CONTINUE TO MONITOR
[2023-03-09] MEDS: Potassium Chloride 40 MEQ in IV NS 0.9% 1,000 ML IV SCH (07:31)
--- NOTE | 2023-03-09 07:37 | NUR ---
RAMP FLIGHT ATTENDANT closing note Patient is Alert , oriented times 3 , Estonian speaking media monitor showed SR HR 92/min. o2 sat 98 % on R/A . Right AC and right upper arm midline is dry and intact,NS and Potasium Chloride running at 75 ml;/hr Left hand IV site is dry and intact, patent with NS flush. all needs were met , will endorse TO NEXT SHIFT FOR CONTINUE OF CARE
[2023-03-09 07:51] LABS: CALCIUM, SERUM 8.3 mg/dL (8.5-10.1); CREATININE 0.7 mg/dL (0.6-1.3); POTASSIUM 3.2 mmol/L (3.5-5.1)
[2023-03-09 08:00] VITALS: BP 176/99; TEMP 98.1; O2SAT 97
[2023-03-09] MEDS: RIVAROXABAN 15 MG TABLET PO SCH ×2 (08:13→21:22)
[2023-03-09] MEDS: PANTOPRAZOLE 40 MG TABLET.DR PO SCH (08:14)
[2023-03-09] MEDS: hydrALAZINE HCL IV 20 MG VIAL IV PRN ×2 (08:57→16:51)
[2023-03-09] MEDS ORDERED: POTASSIUM CHLORIDE 20 MEQ POWDER PACKET PO ONE (11:00)
[2023-03-09 12:00] VITALS: BP 163/90; TEMP 98.4; O2SAT 99
[2023-03-09] MEDS: CEFTRIAXONE 1 G in IV D5W 50 ML IV SCH (13:02)
[2023-03-09 16:00] VITALS: BP 165/94; TEMP 98.2; O2SAT 97
--- NOTE | 2023-03-09 18:55 | NUR ---
RN NOTE PATIENT REMAINS ALERT ORIENTEDX2-3 VERBALLY RESPONSIVE NO SOB NOT ACUTE DISTRESS NOTED,ALL DUE MEDS GIVEN MD ORDERED KEPT CLEAN AND DRY ALL THE TIME,KEPT COMFORTABLE ENDORSE NEXT UPCOMING SHIFT FOR CONTINUATION OF CARE.
[2023-03-09 20:00] VITALS: BP 157/79; TEMP 98.3; O2SAT 97
--- NOTE | 2023-03-09 20:16 | NUR ---
AUTO CARE CENTER MANAGER OPENING NOTE PATIENT RECIVED IN BED AWAKE ALERT ORIENTED X2-3 VERBALLY RESPONSIVE . VITALS STABLE, AFEBRILE, WITH O2 SAT ON NASAL CANULA AT 2L 96%. WITH IV ACCESS OF RIGHT UPPER ACCESS MIDLINE AND RUNNING AT POTASSIUM CHLORIDE 40 mEQ IV AT 70CC/HR AND LEFT WRIST PATENT INTACT FLUSHES AND NO SIGN OF INFILTRATION. ON RAC IV ACCESS REDNESS NOTED NOT PATENT AND NO BLOOD RETURNED, INFILTRATION NOTED REMOVED CLEAN AND PUT DRESSING. PATIENT IS ON PUREED DIET TOLERATED.PROVIDE SAFETY MEASURE, BED IN LOW SETTING FALL PRECAUTION PROVIDED. CALL LIGHT WITH IN REACH.
[2023-03-10] VITALS: BP 143/82; TEMP 98; O2SAT 97
[2023-03-10] MEDS: Potassium Chloride 40 MEQ in IV NS 0.9% 1,000 ML IV SCH (01:12)
[2023-03-10 04:00] VITALS: BP 140/76; TEMP 98.2; O2SAT 98
--- NOTE | 2023-03-10 06:49 | NUR ---
FOURDRINIER TENDER CLOSING NOTE PATIENT IN BED. ALERT ORIENTED X2-3 VERBALLY RESPONSIVE . VITALS STABLE, AFEBRILE, WITH O2 SAT ON NASAL CANULA AT 2L 96%. WITH IV ACCESS OF RIGHT UPPER ACCESS MIDLINE AND RUNNING AT POTASSIUM CHLORIDE 40 mEQ IV AT 70CC/HR AND LEFT WRIST PATENT INTACT FLUSHES AND NO SIGN OF INFILTRATION. ON RAC IV ACCESS REDNESS NOTED NOT PATENT AND NO BLOOD RETURNED, INFILTRATION NOTED REMOVED CLEAN AND PUT DRESSING. PATIENT IS ON PUREED DIET TOLERATED. ALL MEDS GIVE. PROVIDE SAFETY MEASURE,HEAD OF BED ELEVATED FOR ASPIRATION PRECAUTION. BED IN LOW SETTING FALL PRECAUTION PROVIDED. CALL LIGHT WITH IN REACH. ENDORSE TO DAY SHIFT RN.
--- NOTE | 2023-03-10 07:30 | NUR ---
INTERNAL AUDIT MANAGER OPENING NOTE RECEIVED PATIENT IN BED ALERT ORIENTED X2-3 VERBALLY RESPONSIVE. ON 2L SATING >95%.NO SOB NOTED. RESPIRATION EVEN AND UNLABORED. WITH IV ACCESS OF RIGHT UPPER ACCESS MIDLINE, LEFT WRIST PATENT INTACT FLUSHES AND NO SIGN OF INFILTRATION. ON TELE MONITOR SR. SAFETY MEASURES IN PLACED. HEAD OF BED ELEVATED FOR ASPIRATION PRECAUTION. BED IN LOW SETTING FALL PRECAUTION PROVIDED. CALL LIGHT WITH IN REACH. WILL CONTINUE PLAN OF CARE.
[2023-03-10 08:00] VITALS: BP 150/80; TEMP 98.3; O2SAT 96
[2023-03-10] MEDS: PANTOPRAZOLE 40 MG TABLET.DR PO SCH (08:04)
[2023-03-10] MEDS: RIVAROXABAN 15 MG TABLET PO SCH ×2 (08:05→21:07)
[2023-03-10 12:00] VITALS: BP 156/81; TEMP 98.8; O2SAT 98
[2023-03-10] MEDS: CEFTRIAXONE 1 G in IV D5W 50 ML IV SCH (12:09)
[2023-03-10] MEDS: IV NS 0.9% 1,000 ML IV PRN (15:57)
[2023-03-10 16:00] VITALS: BP 156/82; TEMP 99; O2SAT 96
--- NOTE | 2023-03-10 19:55 | NUR ---
CONTENT PRODUCTION SPECIALIST OPENING NOTE RECEIVED PATIENT IN BED ALERT ORIENTED X3. VERBALLY RESPONSIVE. ON 2L N/C. NO SOB NOTED. IV ACCESS ON RIGHT UPPER ARM MIDLINE AND LEFT WRIST PATENT AND INTACT. IV RUNNING N/S 75 ML/HR. NO SIGN OF INFILTRATION. ON TELE MONITOR. SAFETY MEASURES IN PLACED. HOB ELEVATED FOR ASPIRATION PRECAUTION. BED IN LOWEST POSITION AND LOCKED. CALL LIGHT WITH IN REACH. WILL CONTINUE TO MONITOR.
[2023-03-10 20:00] VITALS: BP 104/72; TEMP 99.1; O2SAT 97
--- NOTE | 2023-03-10 20:30 | NUR ---
RN NOTE RECEIVED LAB RESULT BY [employer] SAM. BLOOD CULTURE GRAM POSITIVE COCCI IN CLUSTER. MD GOSS MADE AWARE. MD GOSS ALSO VISIT THE PT. NO NEW ORDER IS GIVEN.
[2023-03-11] VITALS: BP 112/77; TEMP 98.1; O2SAT 95
[2023-03-11 04:00] VITALS: BP 90/39; TEMP 98.1; O2SAT 92
--- NOTE | 2023-03-11 07:00 | NUR ---
RN OPENING NOTE PATIENT ALERT, ORIENTED X3. ON 2L N/C. NO SOB NOTED. IV ACCESS ON RIGHT UPPER ARM MIDLINE LETI 18, AND LEFT WRIST LETI 18 AND PATENT, INTACT AND FLUSHING WELL. IV RUNNING N/S 75 ML/HR. NO SIGN OF INFILTRATION. SAFETY MEASURES IN PLACED. HOB ELEVATED FOR ASPIRATION PRECAUTION. BED IN LOWEST POSITION AND LOCKED POSITION. CALL LIGHT WITHIN REACH. WILL CONTINUE TO MONITOR.
--- NOTE | 2023-03-11 07:00 | NUR ---
MEDICAL STENOGRAPHER CLOSING NOTE PATIENT SLEEPING IN BED ALERT ORIENTED X3. ON 2L N/C. NO SOB NOTED. PT IS ON TELE EXTERNAL MONITOR AT SINUS RHYTHM 72. IV ACCESS ON RIGHT UPPER ARM MIDLINE AND LEFT WRIST PATENT AND INTACT. IV RUNNING N/S 75 ML/HR. NO SIGN OF INFILTRATION. SAFETY MEASURES IN PLACED. HOB ELEVATED FOR ASPIRATION PRECAUTION. BED IN LOWEST POSITION AND LOCKED. PT KEPT CLEAN AND DRY. ALL DUE MEDS ARE GIVEN. ALL NEEDED ATTENDED. CALL LIGHT WITH IN REACH. WILL ENDORSE CARE TO AM SHIFT NURSE.
[2023-03-11] MEDS: IV NS 0.9% 1,000 ML IV PRN (07:09)
[2023-03-11 07:52] LABS: CALCIUM, SERUM 8.7 mg/dL (8.5-10.1); CREATININE 0.7 mg/dL (0.6-1.3); POTASSIUM 3.3 mmol/L (3.5-5.1)
[2023-03-11 08:00] VITALS: BP 150/76; TEMP 98.5; O2SAT 100
[2023-03-11] MEDS: PANTOPRAZOLE 40 MG TABLET.DR PO SCH (08:38)
[2023-03-11] MEDS: RIVAROXABAN 15 MG TABLET PO SCH ×2 (08:38→21:33)
[2023-03-11] MEDS ORDERED: POTASSIUM CHLORIDE 20 MEQ TAB.PRT.SR PO SCH (10:30)
[2023-03-11 12:00] VITALS: BP 153/90; TEMP 98.5; O2SAT 100
[2023-03-11] MEDS: CEFTRIAXONE 1 G in IV D5W 50 ML IV SCH (12:50)
[2023-03-11 16:00] VITALS: BP 158/83; TEMP 98.2; O2SAT 100
--- NOTE | 2023-03-11 19:03 | NUR ---
RN CLOSING NOTE PATIENT ALERT, ORIENTED X3. ON 2L N/C. NO SOB NOTED. IV ACCESS ON RIGHT UPPER ARM MIDLINE LETI 18, AND LEFT WRIST LETI 18 AND PATENT, INTACT AND FLUSHING WELL. IV RUNNING N/S 75 ML/HR. NO SIGN OF INFILTRATION. ALL MEDICATIONS GIVEN PER MD ORDER, PATIENT WAS REPOSITIONED EVERY TWO HOURS. SAFETY MEASURES IN PLACED. HOB ELEVATED FOR ASPIRATION PRECAUTION. BED IN LOWEST POSITION AND LOCKED POSITION. CALL LIGHT WITHIN REACH. REPORT WILL BE GIVEN TO SHREDDER PICKER NURSE.
--- NOTE | 2023-03-11 19:55 | NUR ---
TOBACCO FEEDER CATCHER OPENING NOTE RECEIVED PATIENT IN BED ALERT ORIENTED X3. FAMILY AT BEDSIDE. PT IS ON 2L N/C. NO SOB NOTED. IV ACCESS ON L UPPER ARM MIDLINE AND LEFT WRIST PATENT AND INTACT. IV RUNNING N/S 75 ML/HR. NO SIGN OF INFILTRATION. ON EXTERNAL TELE MONITOR. SAFETY MEASURES IN PLACED. HOB ELEVATED FOR ASPIRATION PRECAUTION. BED IN LOWEST POSITION AND LOCKED. CALL LIGHT WITH IN REACH. WILL CONTINUE TO MONITOR.
[2023-03-11 20:00] VITALS: BP 141/80; TEMP 98; O2SAT 97
[2023-03-12] VITALS: BP 124/67; TEMP 97.7; O2SAT 95
[2023-03-12] MEDS: IV NS 0.9% 1,000 ML IV PRN (01:35)
[2023-03-12 01:45] VITALS: O2SAT 98
--- NOTE | 2023-03-12 02:00 | NUR ---
RN NOTE RECEIVED HAND OFF REPORT FROM DIONTE COLLAZO
[2023-03-12 04:00] VITALS: BP 122/73; TEMP 97.9; O2SAT 100
[2023-03-12 06:57] LABS: CALCIUM, SERUM 8.6 mg/dL (8.5-10.1); CREATININE 0.8 mg/dL (0.6-1.3); POTASSIUM 3.5 mmol/L (3.5-5.1)
--- NOTE | 2023-03-12 07:23 | NUR ---
CHENILLE MACHINE OPERATOR CLOSING NOTES PATIENT IN BED, ASLEEP, BUT AROUSABLE. O2 VIA NC AT 2L, NO SOB/DISTRESS NOTED. ON LAND MANAGER SHOWING SR. IV ACCESS ON VIRGILIO MIDLINE INFUSING NS AT 75 ML/HR AND LEFT WRIST S/L INTACT AND PATENT. ALL DUE MEDS WERE GIVEN AND NEEDS ATTENDED. SAFETY MEASURES IN PLACE: BED LOCKED AND IN LOWEST POSITION, BED ALARM ON, CALL LIGHT WITHIN REACH. WILL ENDORSE TO ONCOMING NURSE FOR LORRAINE
--- NOTE | 2023-03-12 07:31 | NUR ---
MS RN OPENING NOTE RECEIVED PATIENT IN BED, ASLEEP, BUT AROUSABLE. O2 VIA NC AT 2L, NO SOB/DISTRESS NOTED. IV ACCESS ON VIRGILIO MIDLINE AND LEFT WRIST S/L INTACT AND PATENT. ALL SAFETY MEASURES IN PLACE: BED LOCKED AND IN LOWEST POSITION, BED ALARM ON, CALL LIGHT WITHIN REACH. BED ALARM ON
[2023-03-12 08:00] VITALS: BP 135/95; TEMP 98.5; O2SAT 95
[2023-03-12] MEDS: RIVAROXABAN 15 MG TABLET PO SCH ×2 (08:24→21:44)
[2023-03-12] MEDS: PANTOPRAZOLE 40 MG/PACK PACK PO SCH (08:24)
[2023-03-12] MEDS: CEFTRIAXONE 1 G in IV D5W 50 ML IV SCH (12:34)
[2023-03-12 16:00] VITALS: BP 159/82; TEMP 98.2; O2SAT 97
--- NOTE | 2023-03-12 19:26 | NUR ---
MS RN CLOSING NOTE PATIENT IN BED, ALERT AND ORIENTED. O2 VIA NC AT 2L AT 97%., NO SOB/DISTRESS NOTED. IV ACCESS ON VIRGILIO MIDLINE AND LEFT WRIST S/L INTACT AND PATENT. ALL SAFETY MEASURES IN PLACE: BED LOCKED AND IN LOWEST POSITION, BED ALARM ON, CALL LIGHT WITHIN REACH. ENDORSED TO COSTUMED CHARACTER ENTERTAINER RN FOR CONTUITY OF CARE
--- NOTE | 2023-03-12 19:40 | NUR ---
MS RN OPENING NOTE RECEIVED PATIENT IN BED; AWAKE, ALERT AND ORIENTED X 3; INDIAN SPEAKER. ON O2 INHALATION @ 2 LPM VIA NC; WELL TOLERATED. BREATHING EQUAL AND NONLABORED. NO S/SX OF PAIN OR DISCOMFORT NOTED AT THIS TIME. WITH IV ACCESS ON RIGHT UPPER ARM MIDLINE AND LEFT WRIST 18g; BOTH PATENT, INTACT AND SALINE LOCKED. ABLE TO MAKE NEEDS KNOWN. SAFETY PRECAUTIONS IMPLEMENTED: HEAD OF BED ELEVATED, CALL LIGHT AND TABLE WITHIN REACH, SIDE RAILS UP X 3, BED IN LOWEST LOCKED POSITION. WILL CONTINUE TO MONITOR THROUGHOUT SHIFT.
[2023-03-12 20:00] VITALS: BP 144/85; TEMP 99.6; O2SAT 94
--- NOTE | 2023-03-12 21:44 | NUR ---
RN NOTE PATIENT'S HGB - 10.4, HCT - 31, PLT - 171 OF 03/07/23. NO SURGICAL PROCEDURE TOMORROW. NO S/SX OF BLEEDING NOTED. XARELTO 15 MG 1 TAB GIVEN PO ORDERED; TOLERATED WELL. WILL CONTINUE TO MONITOR.
[2023-03-13 05:00] VITALS: BP 139/80; TEMP 98.5; O2SAT 94
[2023-03-13 05:59] LABS: BASOPHILS % (AUTO) 0.6 % (0.0-2.0); EOSINOPHILS % (AUTO) 2.7 % (0.0-6.0); HEMATOCRIT 33 % (39-51); HEMOGLOBIN 11.2 g/dL (13.5-17.5); LYMPHOCYTES # (AUTO) 1.2 K/uL (0.8-4.8); LYMPHOCYTES % (AUTO) 14.5 % (20.0-44.0); MEAN CORPUSCULAR HGB CONC 34 g/dl (31.0-36.0); MEAN CORPUSCULAR VOLUME 92 fL (80-96); MONOCYTES # (AUTO) 0.5 K/uL (0.1-1.30); MONOCYTES % (AUTO) 6.4 % (2.0-12.0); NEUTROPHILS # (AUTO) 6.3 K/uL (1.8-8.9); NEUTROPHILS % (AUTO) 75.8 % (43.0-81.0); PLATELET COUNT (AUTO) 499 K/uL (150-450); WHITE BLOOD COUNT (AUTO) 8.3 K/uL (4.3-11.0)
--- NOTE | 2023-03-13 06:30 | NUR ---
MS RN CLOSING NOTE PATIENT IN BED; AWAKE, A/O X 3; YI SPEAKER. STILL ON O2 INHALATION @ 2 LPM VIA NC; TOLERATING WELL. IN NO ACUTE DISTRESS. DENIES PAIN OR DISCOMFORT. WITH IV ACCESS ON IKER MIDLINE AND LEFT WRIST 18g; BOTH PATENT, INTACT AND SALINE LOCKED. ALL NEEDS MET. ALL DUE MEDS GIVEN ORDERED. SAFETY PRECAUTIONS IN PLACE. ENDORSED TO INCOMING NURSE FOR CONTINUITY OF CARE.
[2023-03-13 06:35] LABS: CALCIUM, SERUM 9.2 mg/dL (8.5-10.1); CREATININE 0.9 mg/dL (0.6-1.3); MAGNESIUM 2.3 mg/dL (1.8-2.4); PHOSPHORUS 3.7 mg/dL (2.5-4.9); POTASSIUM 3.3 mmol/L (3.5-5.1)
[2023-03-13] MEDS: RIVAROXABAN 15 MG TABLET PO SCH ×2 (08:37→20:37)
[2023-03-13] MEDS: PANTOPRAZOLE 40 MG/PACK PACK PO SCH (08:37)
[2023-03-13] MEDS ORDERED: POTASSIUM CHLORIDE 20 MEQ TAB.PRT.SR PO ONE (09:30)
[2023-03-13] MEDS: CEFTRIAXONE 1 G in IV D5W 50 ML IV SCH (12:49)
[2023-03-13 13:00] VITALS: BP 133/75; TEMP 97.9; O2SAT 100
--- NOTE | 2023-03-13 14:00 | NUR ---
Patient care transferred to YUDY Armstrong for continuation of care. Patient in stable condition. No s/s of discomfort or distress.
--- NOTE | 2023-03-13 18:36 | NUR ---
INSTALLATION SUPERVISOR CLOSING NOTES All due meds and tx given as ordered. Pt tolerated everything well. All needs attended to. Call light within reach. Will endorse to oncoming nurse.
--- NOTE | 2023-03-13 19:25 | NUR ---
SEWING INSPECTOR OPENING NOTE RECEIVED PATIENT IN BED; AWAKE, ALERT AND ORIENTED X 3; SLOV[place] SPEAKER. ON O2 INHALATION @ 2 LPM VIA NC; WELL TOLERATED. BREATHING EQUAL AND NONLABORED. NO S/SX OF PAIN OR DISCOMFORT NOTED AT THIS TIME. WITH IV ACCESS ON RIGHT UPPER ARM MIDLINE AND LEFT WRIST 18g; BOTH PATENT, INTACT AND SALINE LOCKED. ABLE TO MAKE NEEDS KNOWN. SAFETY PRECAUTIONS IMPLEMENTED: HEAD OF BED ELEVATED, CALL LIGHT AND TABLE WITHIN REACH, SIDE RAILS UP X 3, BED IN LOWEST LOCKED POSITION. WILL CONTINUE TO MONITOR THROUGHOUT SHIFT.
[2023-03-13 21:07] VITALS: BP 126/68; TEMP 97.2; O2SAT 100
[2023-03-14 05:13] VITALS: BP 128/76; TEMP 97.2; O2SAT 100
--- NOTE | 2023-03-14 06:24 | NUR ---
MS PHYSICIST SOLID STATE CLOSING NOTE PATIENT IN BED; AWAKE, A/O X 3; [place] R[place] SPEAKER. STILL ON O2 INHALATION @ 2 LPM VIA NC; TOLERATING WELL. IN NO ACUTE DISTRESS. DENIES PAIN OR DISCOMFORT. WITH IV ACCESS ON IKER MIDLINE AND LEFT WRIST 18g; BOTH PATENT, INTACT AND SALINE LOCKED. ALL NEEDS MET. ALL DUE MEDS GIVEN ORDERED. SAFETY PRECAUTIONS IN PLACE. ENDORSED TO INCOMING NURSE FOR CONTINUITY OF CARE.
[2023-03-14 07:09] LABS: BASOPHILS # (AUTO) 0.1 K/uL (0.0-0.2); BASOPHILS % (AUTO) 0.7 % (0.0-2.0); EOSINOPHILS % (AUTO) 2.3 % (0.0-6.0); HEMATOCRIT 34 % (39-51); HEMOGLOBIN 11.4 g/dL (13.5-17.5); LYMPHOCYTES # (AUTO) 1.5 K/uL (0.8-4.8); LYMPHOCYTES % (AUTO) 17.1 % (20.0-44.0); MEAN CORPUSCULAR HGB CONC 34 g/dl (31.0-36.0); MEAN CORPUSCULAR VOLUME 91 fL (80-96); MONOCYTES # (AUTO) 0.6 K/uL (0.1-1.30); MONOCYTES % (AUTO) 7.2 % (2.0-12.0); NEUTROPHILS # (AUTO) 6.2 K/uL (1.8-8.9); NEUTROPHILS % (AUTO) 72.7 % (43.0-81.0); PLATELET COUNT (AUTO) 534 K/uL (150-450); RED BLOOD CELL COUNT(AUTO) 3.71 MIL/uL (4.5-6.0); WHITE BLOOD COUNT (AUTO) 8.6 K/uL (4.3-11.0)
[2023-03-14 07:10] LABS: CALCIUM, SERUM 9.1 mg/dL (8.5-10.1); CREATININE 0.8 mg/dL (0.6-1.3); MAGNESIUM 2.3 mg/dL (1.8-2.4); PHOSPHORUS 3.3 mg/dL (2.5-4.9); POTASSIUM 3.5 mmol/L (3.5-5.1)
--- NOTE | 2023-03-14 07:40 | NUR ---
RN MS OPENING NOTE RECEIVED PATIENT IN BED; AWAKE, ALERT AND ORIENTED X 3; BRAZILIAN SPEAKER. ON O2 INHALATION @ 2 LPM VIA NC; WELL TOLERATED. NO SOB OR DISTRESS NOTED . NO C/O OF PAIN OR DISCOMFORT NOTED AT THIS TIME. WITH IV ACCESS ON RIGHT UPPER ARM MIDLINE AND LEFT WRIST 18G ; BOTH PATENT, INTACT AND SALINE LOCKED. ABLE TO MAKE NEEDS KNOWN. SAFETY PRECAUTIONS IMPLEMENTED: HEAD OF BED ELEVATED, CALL LIGHT AND TABLE WITHIN REACH, SIDE RAILS UP X 3, BED IN LOWEST LOCKED POSITION. WILL CONTINUE TO MONITOR THROUGHOUT SHIFT.
[2023-03-14 08:20] VITALS: BP 128/86; TEMP 98.2; O2SAT 100
[2023-03-14] MEDS ORDERED: CEFT1FRO2 IV (08:40)
[2023-03-14] MEDS ORDERED: RIVA15TA PO (08:49)
[2023-03-14] MEDS: RIVAROXABAN 15 MG TABLET PO SCH (08:59)
[2023-03-14] MEDS: PANTOPRAZOLE 40 MG/PACK PACK PO SCH (08:59)
[2023-03-14 10:00] VITALS: BP 136/76; TEMP 98.1; O2SAT 100
[2023-03-14] MEDS: CEFTRIAXONE 1 G in IV D5W 50 ML IV SCH (12:53)
[2023-03-14 13:00] VITALS: BP 136/76; TEMP 98; O2SAT 100
--- NOTE | 2023-03-14 14:30 | NUR ---
JOINT MAKER MACHINE NOTES PATIENT WAS SEEN BY MD AND WITH ORDER FOR DISCHARGE TO HOME , MEDICALLY CLEARED AND WILL CONTINUE IV ANTIBIOTICS AT HOME FOR 5 MORE DAYS , DISCHARGE PAPERS WERE PREPARED AND DISCHARGE INSTRUCTIONS PROVIDED REGARDING FOLLOW WITH PCP, CONTINUE HOME MEDS , IV ANTIBIOTIC AT HOME FOR 5 MORE DAYS AND THERE IS HOME HEALTH NURSE WILL COME TO GIVE THE IV ATB AND TO CALL 911 IN CASE OF EMERGENCY , ALL BELONGINGS WERE TAKEN AND FORM WAS SIGNED , ID BADGE WAS REMOVED AND IKER MIDLINE WAS RETAINED FOR IV ANTIBIOTIC AT HOME , PATIENT LEFT IN STABLE CONDITION , ASSISTED TO THE LOBBY WITH [facility] AND FAMILY PROVIDED TRANSPORTATION VIA PRIVATE CAR
== END 2023-03-14 14:15 | disposition home health service (06) | DRG 720 ==
LOC: ER 02:08 → ICU 07:58 → EDBD 07:58 → TELE1 03-08 13:01 → MEDSG1 03-12 20:30
PROVIDERS: ADMIT Internal Medicine; ATTEND Internal Medicine
PROC: 5A1955Z Respiratory Ventilation, Greater than 96 Consecutive Hours (ICD-10-PCS; principal; 2023-03-03)
PROC: 0BH17EZ Insertion of Endotracheal Airway into Trachea, Via Natural or Artificial Opening (ICD-10-PCS; 2023-03-03)
PROC: 05H533Z Insertion of Infusion Device into Right Subclavian Vein, Percutaneous Approach (ICD-10-PCS; 2023-03-07)
PROC: B546ZZA Ultrasonography of Right Subclavian Vein, Guidance (ICD-10-PCS; 2023-03-07)
DX: A41.9 Sepsis, unspecified organism (principal); N17.0 Acute kidney failure with tubular necrosis; J69.0 Pneumonitis due to inhalation of food and vomit; G93.41 Metabolic encephalopathy; I26.94 Multiple subsegmental thrombotic pulmonary emboli without acute cor pulmonale; J96.01 Acute respiratory failure with hypoxia; J96.02 Acute respiratory failure with hypercapnia; E44.1 Mild protein-calorie malnutrition; E87.29 Other acidosis; R65.20 Severe sepsis without septic shock; I21.A1 Myocardial infarction type 2; D64.9 Anemia, unspecified; E83.39 Other disorders of phosphorus metabolism; E87.0 Hyperosmolality and hypernatremia; E87.6 Hypokalemia; E88.09 Other disorders of plasma-protein metabolism, not elsewhere classified; I11.0 Hypertensive heart disease with heart failure; M62.82 Rhabdomyolysis; R73.03 Prediabetes; Z86.61 Personal history of infections of the central nervous system; Z68.22 Body mass index [BMI] 22.0-22.9, adult; I50.32 Chronic diastolic (congestive) heart failure
CPT/HCPCS: 31720; 36415; 36600; 70450-TC; 71045-TC; 80048-TC; 80076-TC; 80202-TC; 81001; 82140-TC; 82550-TC; 82553; 82803-TC; 83605-TC; 83735-TC; 84100-TC; 84132-TC; 84295-TC; 84443-TC; 84478-TC; 84484-TC; 85025-TC; 85730-TC; 87040-TC; 87081-TC; 87086-TC; 87806; 92526; 92611-TC; 93307-TC; 93970-TC; 94003-TC; 94640-TC; 94660; 94799-TC; 97112-TC; 97116-TC; 97530-TC; A4223; A4349; A4624; A6253; A6403; A9563; C9113; G0378; G0480; J0330; J0360; J0696; J1630; J1650; J2060; J2370; J2543; J3370; J3480; J3490; J7030; J7050; J7060; J7120; Q9967

== ENCOUNTER 2023-05-21 09:33 | Emergency (ER) | payer MEDICAID ==
[~2023-05-21] VITALS: Ht 165.1 cm; Wt 60.8 kg
[~2023-05-21 09:33] MED LIST: ATOR20TA PO; BACL20TA PO; BUPR1PAT21 TD; CEFT1FRO2 IV; GABA-536 PO; LORA-259 PO; PREG50CA PO; RIVA15TA PO; TIZA4TAB5 PO; TRIH2TAB3 PO
[2023-05-21] MEDS ORDERED: methylPREDNISolone ACETATE 40 MG/ML VIAL IM ONE (10:30)
[2023-05-21] MEDS ORDERED: KETOROLAC TROMETHAMINE INJ 30 MG/ML VIAL IM ONE (10:30)
[2023-05-21] MEDS ORDERED: methylPREDNISolone ACETATE 80 MG/ML VIAL ONE (10:31)
[2023-05-21] MEDS ORDERED: KETOROLAC TROMETHAMINE INJ 30 MG/ML VIAL ONE (10:31)
[2023-05-21 12:02] VITALS: BP 141/97; TEMP 98; O2SAT 98
== END 2023-05-21 12:02 | disposition home or self-care (01) ==
LOC: ER 09:38
DX: S13.8XXA Sprain of joints and ligaments of other parts of neck, initial encounter (principal); I10 Essential (primary) hypertension; Z98.890 Other specified postprocedural states; Z79.899 Other long term (current) drug therapy; X50.0XXA Overexertion from strenuous movement or load, initial encounter; Y93.89 Activity, other specified; Y92.89 Other specified places as the place of occurrence of the external cause; Y99.8 Other external cause status
CPT/HCPCS: 99284; 96372 ×2; J1030; J1040; J1885

== ENCOUNTER 2023-09-15 10:43 | Emergency (ER) | payer MEDICAID ==
[~2023-09-15] VITALS: Ht 152.4 cm; Wt 60.8 kg
[2023-09-15] MEDS ORDERED: KETOROLAC TROMETHAMINE INJ 60 MG/2 ML VIAL IM ONE (11:00)
[2023-09-15] MEDS ORDERED: methylPREDNISolone SOD SUCC 40 MG/ML VIAL IM ONE (11:00)
[2023-09-15] MEDS ORDERED: CYCLOBENZAPRINE 10 MG TABLET PO ONE (11:00)
[2023-09-15] MEDS ORDERED: KETOROLAC TROMETHAMINE INJ 30 MG/ML VIAL ONE (11:12)
[2023-09-15] MEDS ORDERED: methylPREDNISolone SOD SUCC 40 MG/ML VIAL ONE (11:12)
[2023-09-15] MEDS ORDERED: CYCLOBENZAPRINE 10 MG TABLET ONE (11:13)
[2023-09-15] MEDS ORDERED: CYCL5TAB PO (12:15)
[2023-09-15] MEDS ORDERED: KETO10TA2 PO (12:15)
[2023-09-15 12:39] VITALS: BP 120/81; TEMP 98.5; O2SAT 100
== END 2023-09-15 12:39 | disposition home or self-care (01) ==
LOC: ER 10:51
DX: S13.4XXA Sprain of ligaments of cervical spine, initial encounter (principal); I10 Essential (primary) hypertension; X58.XXXA Exposure to other specified factors, initial encounter; Y93.89 Activity, other specified; Y92.89 Other specified places as the place of occurrence of the external cause; Y99.8 Other external cause status
CPT/HCPCS: 99284; 96372 ×2; J2920; J1885

== ENCOUNTER 2023-09-28 12:14 | Emergency (ER) | payer MEDICAID ==
[~2023-09-28] VITALS: Ht 160 cm; Wt 61.2 kg
[~2023-09-28 12:14] MED LIST changes: +CYCL5TAB PO; +KETO10TA2 PO
[2023-09-28 13:17] VITALS: BP 134/88; TEMP 98.1; O2SAT 96
[2023-09-28] MEDS ORDERED: KETOROLAC TROMETHAMINE INJ 30 MG/ML VIAL ONE (14:17)
[2023-09-28] MEDS: KETOROLAC TROMETHAMINE INJ 60 MG/2 ML VIAL IM ONE (14:18)
== END 2023-09-28 15:18 | disposition left against medical advice (07) ==
LOC: ER 12:14
DX: M54.2 Cervicalgia (principal); I10 Essential (primary) hypertension; Z98.890 Other specified postprocedural states; Z79.899 Other long term (current) drug therapy
CPT/HCPCS: 99281; 96372; J1885

== ENCOUNTER 2023-10-05 08:12 | Emergency (ER) | payer MEDICAID ==
[~2023-10-05] VITALS: Ht 165.1 cm; Wt 68.0 kg
[2023-10-05] MEDS ORDERED: CYCL5TAB PO (08:56)
[2023-10-05] MEDS ORDERED: LIDO30AD10 TP (08:56)
[2023-10-05] MEDS ORDERED: IBUP-1955 PO (08:56)
[2023-10-05] MEDS ORDERED: CYCLOBENZAPRINE 10 MG TABLET ONE (09:24)
[2023-10-05] MEDS ORDERED: HYDROCODONE/APAP 5/325MG TABLET ONE (09:24)
[2023-10-05] MEDS: HYDROCODONE/APAP 5/325MG TABLET PO ONE (09:25)
[2023-10-05] MEDS: CYCLOBENZAPRINE 10 MG TABLET PO ONE (09:25)
[2023-10-05 09:44] VITALS: BP 131/81; TEMP 97.9; O2SAT 98
== END 2023-10-05 09:45 | disposition home or self-care (01) ==
LOC: ER 08:12
DX: G89.29 Other chronic pain (principal); M54.2 Cervicalgia; I10 Essential (primary) hypertension; E78.5 Hyperlipidemia, unspecified; Z79.899 Other long term (current) drug therapy

== ENCOUNTER 2023-10-14 12:00 | Emergency (ER) | payer MEDICAID ==
[~2023-10-14] VITALS: Ht 154.9 cm; Wt 68.0 kg
[~2023-10-14 12:00] MED LIST changes: +IBUP-1955 PO; +LIDO30AD10 TP
[2023-10-14] MEDS ORDERED: KETOROLAC TROMETHAMINE 15 MG/ML VIAL ONE (13:16)
[2023-10-14] MEDS ORDERED: LIDOCAINE 5% (PATCH) 1 EA PATCH TP ONE (13:17)
[2023-10-14] MEDS ORDERED: HYDROCODONE/APAP 5/325MG TABLET ONE (13:17)
[2023-10-14] MEDS ORDERED: CYCLOBENZAPRINE 10 MG TABLET ONE (13:17)
[2023-10-14] MEDS: LIDOCAINE 5% (PATCH) 1 EA PATCH TP STA (13:25)
[2023-10-14] MEDS: CYCLOBENZAPRINE 10 MG TABLET PO ONE (13:26)
[2023-10-14] MEDS: KETOROLAC TROMETHAMINE 15 MG/ML VIAL IM ONE (13:26)
[2023-10-14] MEDS: HYDROCODONE/APAP 5/325MG TABLET PO ONE (13:28)
[2023-10-14 13:57] VITALS: BP 138/81; TEMP 98.3; O2SAT 100
== END 2023-10-14 13:58 | disposition home or self-care (01) ==
LOC: ER 12:02
DX: M54.2 Cervicalgia (principal); G43.909 Migraine, unspecified, not intractable, without status migrainosus; I10 Essential (primary) hypertension; E78.5 Hyperlipidemia, unspecified; Z98.890 Other specified postprocedural states; Z79.899 Other long term (current) drug therapy
CPT/HCPCS: 99284; 96372; J1885

== ENCOUNTER 2023-10-27 09:54 | Emergency (ER) | payer MEDICAID ==
[~2023-10-27] VITALS: Ht 162.6 cm; Wt 63.5 kg
[2023-10-27] MEDS ORDERED: KETOROLAC TROMETHAMINE INJ 30 MG/ML VIAL ONE (10:36)
[2023-10-27] MEDS: KETOROLAC TROMETHAMINE INJ 30 MG/ML VIAL IM ONE (10:44)
[2023-10-27 10:59] VITALS: BP 98/78; TEMP 98; O2SAT 97
== END 2023-10-27 11:00 | disposition home or self-care (01) ==
LOC: ER 09:57
DX: G89.29 Other chronic pain (principal); M54.2 Cervicalgia; I10 Essential (primary) hypertension; E78.5 Hyperlipidemia, unspecified; Z79.899 Other long term (current) drug therapy
CPT/HCPCS: 99283; 96374; J1885

== ENCOUNTER 2023-11-02 11:47 | Emergency (ER) | payer MEDICAID ==
[~2023-11-02] VITALS: Ht 162.6 cm; Wt 64.9 kg
[2023-11-02 11:59] VITALS: BP 112/69; TEMP 98.1
[2023-11-02] MEDS ORDERED: CARI350T PO (12:14)
[2023-11-02 12:20] VITALS: O2SAT 98
== END 2023-11-02 12:30 | disposition home or self-care (01) ==
LOC: ER 11:49
DX: M54.12 Radiculopathy, cervical region (principal); I10 Essential (primary) hypertension; E78.5 Hyperlipidemia, unspecified; Z79.899 Other long term (current) drug therapy

== ENCOUNTER 2023-11-07 01:59 | Inpatient (IN) | payer MEDICAID ==
[~2023-11-07] VITALS: Ht 152.4 cm; Wt 60.8 kg
[~2023-11-07 01:59] MED LIST changes: +CARI350T PO
[2023-11-07 03:19] LABS: APPEARANCE,URINE SLIGHTLY CLOUDY (CLEAR); BILIRUBIN,URINE NEGATIVE (NEGATIVE); BLOOD, URINE NEGATIVE Ery/uL (NEGATIVE); COLOR,URINE YELLOW (YELLOW); KETONES,URINE NEGATIVE (NEGATIVE); LEUKOCYTE ESTERASE ,URINE NEGATIVE (NEGATIVE); NITRITE, URINE NEGATIVE (NEGATIVE); PROTEIN,URINE NEGATIVE (NEGATIVE); UGLUCOSE NEGATIVE (NEGATIVE); UROBILINOGEN,URINE 0.2 EU/dL (0.2)
[2023-11-07 03:27] LABS: AMPHETAMINE, URINE NEGATIVE (NEGATIVE); BARBITURATE, URINE NEGATIVE (NEGATIVE); BENZODIAZEPINE, URINE NEGATIVE (NEGATIVE); CANNABINOID, URINE NEGATIVE (NEGATIVE); COCCAINE, URINE NEGATIVE (NEGATIVE); OPIATE, URINE NEGATIVE (NEGATIVE); PHENCYCLIDINE SCREEN,URINE NEGATIVE (NEGATIVE)
[2023-11-07 03:42] LABS: BASOPHILS % (AUTO) 0.5 % (0.0-2.0); EOSINOPHILS # (AUTO) 0.2 K/uL (0.0-0.7); EOSINOPHILS % (AUTO) 2.3 % (0.0-6.0); HEMATOCRIT 36 % (39-51); HEMOGLOBIN 12.3 g/dL (13.5-17.5); LYMPHOCYTES # (AUTO) 2.2 K/uL (0.8-4.8); LYMPHOCYTES % (AUTO) 25.6 % (20.0-44.0); MEAN CORPUSCULAR HEMOGLOBIN 32 PG (26.0-33.0); MEAN CORPUSCULAR HGB CONC 34 g/dl (31.0-36.0); MEAN CORPUSCULAR VOLUME 95 fL (80-96); MONOCYTES # (AUTO) 0.8 K/uL (0.1-1.30); MONOCYTES % (AUTO) 9.5 % (2.0-12.0); NEUTROPHILS # (AUTO) 5.4 K/uL (1.8-8.9); NEUTROPHILS % (AUTO) 62.1 % (43.0-81.0); PLATELET COUNT (AUTO) 221 K/uL (150-450); RED BLOOD CELL COUNT(AUTO) 3.84 MIL/uL (4.5-6.0); RED CELL DISTRIBUTION WIDTH 13.5 % (11.5-15.0); WHITE BLOOD COUNT (AUTO) 8.8 K/uL (4.3-11.0)
[2023-11-07 03:45] LABS: CARBON DIOXIDE 28 mmol/L (21-32); CHLORIDE 103 mmol/L (98-107); CREATININE 0.8 mg/dL (0.6-1.3); GLUCOSE 102 mg/dL (74-106); POTASSIUM 4.3 mmol/L (3.5-5.1); SERUM AMMONIA 16 umol/L (11-32); SODIUM SERUM 139 mmol/L (136-145); UREA NITROGEN, BLOOD 15 mg/dL (7-18)
[2023-11-07 03:51] LABS: LACTIC ACID 0.8 mmol/L (0.4-2.0)
[2023-11-07 04:00] LABS: ALANINE AMINOTRANSFERASE 19 U/L (12-78); ALBUMIN 3.3 g/dL (3.4-5.0); ALCOHOL, BLOOD < 3 mg/dL (0-10); ALKALINE PHOSPHATASE 77 U/L (46-116); ASPARTATE AMINOTRANSFERASE 13 U/L (15-37); BILIRUBIN,TOTAL 0.3 mg/dL (0.2-1.0); NT-PRO BNP 41 pg/mL (0-125); TOTAL PROTEIN, SERUM 7.5 g/dL (6.4-8.2)
[2023-11-07] MEDS ORDERED: diphenhydrAMINE HCL 50 MG/ML VIAL ONE (04:03)
[2023-11-07] MEDS ORDERED: LORAZEPAM INJ 2 MG/ML VIAL ONE (04:04)
[2023-11-07] MEDS: diphenhydrAMINE HCL 50 MG/ML VIAL IM ONE (04:25)
[2023-11-07] MEDS: LORAZEPAM INJ 2 MG/ML VIAL IM ONE (04:25)
[2023-11-07] MEDS ORDERED: ATOR40TA PO (08:57)
[2023-11-07] MEDS ORDERED: LORA-258 PO (08:57)
[2023-11-07] MEDS ORDERED: LISI10TA29 PO (08:57)
[2023-11-07] MEDS ORDERED: PREG-59 PO (08:57)
[2023-11-07] MEDS ORDERED: ACETAMINOPHEN 325 MG TABLET PO PRN (12:00)
[2023-11-07] MEDS ORDERED: MAG HYDROX/AL HYDROX/SIMETH 30 ML UDC PO PRN (12:00)
[2023-11-07] MEDS ORDERED: MAGNESIUM HYDROXIDE 30 ML UDC PO PRN (12:00)
[2023-11-07] MEDS ORDERED: Z GUARD REMEDY 4 OZ OINT TP PRN (12:00)
[2023-11-07] MEDS ORDERED: ONDANSETRON HCL/PF 4 MG/2 ML VIAL IVP PRN (12:00)
[2023-11-07] MEDS ORDERED: ENOXAPARIN SODIUM 40 MG/0.4 ML DISP.SYRIN SQ ONE (12:51)
[2023-11-07] MEDS ORDERED: LEVETIRACETAM (500MG) 500 MG in IV NS 0.9% 100 ML IV ONE (13:00)
[2023-11-07] MEDS: ENOXAPARIN SODIUM 40 MG/0.4 ML DISP.SYRIN SQ SCH (13:00)
[2023-11-07] MEDS: LEVETIRACETAM (500MG) 500 MG in IV NS 0.9% 100 ML IV SCH (13:29)
[2023-11-07 14:41] VITALS: O2SAT 94
[2023-11-07 20:00] VITALS: BP 122/75; TEMP 99.1; O2SAT 99
[2023-11-07] MEDS: SIMVASTATIN 20 MG TABLET PO SCH (21:07)
[2023-11-07] MEDS: ATORVASTATIN 40 MG TABLET PO SCH (21:07)
[2023-11-08] VITALS: BP 101/75; TEMP 98.1; TEMP 98.2; O2SAT 98
[2023-11-08 04:00] VITALS: BP 112/83; TEMP 97.8
[2023-11-08 05:03] VITALS: BP 112/83; TEMP 97.8; O2SAT 98
[2023-11-08 07:34] LABS: BASOPHILS % (AUTO) 0.6 % (0.0-2.0); EOSINOPHILS # (AUTO) 0.2 K/uL (0.0-0.7); EOSINOPHILS % (AUTO) 4.1 % (0.0-6.0); HEMATOCRIT 37 % (39-51); HEMOGLOBIN 12.9 g/dL (13.5-17.5); LYMPHOCYTES # (AUTO) 1.8 K/uL (0.8-4.8); LYMPHOCYTES % (AUTO) 30.9 % (20.0-44.0); MEAN CORPUSCULAR HEMOGLOBIN 33 PG (26.0-33.0); MEAN CORPUSCULAR HGB CONC 34 g/dl (31.0-36.0); MEAN CORPUSCULAR VOLUME 95 fL (80-96); MONOCYTES # (AUTO) 0.5 K/uL (0.1-1.30); MONOCYTES % (AUTO) 8.7 % (2.0-12.0); NEUTROPHILS # (AUTO) 3.2 K/uL (1.8-8.9); NEUTROPHILS % (AUTO) 55.7 % (43.0-81.0); PLATELET COUNT (AUTO) 226 K/uL (150-450); RED BLOOD CELL COUNT(AUTO) 3.96 MIL/uL (4.5-6.0); RED CELL DISTRIBUTION WIDTH 13.5 % (11.5-15.0); WHITE BLOOD COUNT (AUTO) 5.8 K/uL (4.3-11.0)
[2023-11-08 07:40] LABS: CALCIUM, SERUM 9.1 mg/dL (8.5-10.1); CREATININE 0.7 mg/dL (0.6-1.3); INR 1.02 (0.91-1.10); MAGNESIUM 2.2 mg/dL (1.8-2.4); PARTIAL THROMBOPLASTIN TIME 29.6 SEC (24.3-34.3); PHOSPHORUS 4.2 mg/dL (2.5-4.9); POTASSIUM 4.1 mmol/L (3.5-5.1); PROTHROMBIN TIME 10.8 SECS (9.2-11.1)
[2023-11-08 07:58] LABS: THYROID STIMULATING HORMONE 3.156 uIU/mL (0.358-3.74)
[2023-11-08] MEDS: ASPIRIN EC 325 MG TABLET.DR PO SCH (08:15)
[2023-11-08] MEDS: PANTOPRAZOLE 40 MG TABLET.DR PO SCH (08:15)
[2023-11-08] MEDS: LISINOPRIL (20MG) 20 MG TABLET PO SCH (08:16)
[2023-11-08] MEDS: ENOXAPARIN SODIUM 40 MG/0.4 ML DISP.SYRIN SQ SCH (08:18)
[2023-11-08 08:33] VITALS: BP 128/98; TEMP 98.2; O2SAT 98
[2023-11-08] MEDS ORDERED: LISINOPRIL (10MG) 10 MG TABLET PO SCH (09:00)
[2023-11-08] MEDS ORDERED: PANTOPRAZOLE 40 MG VIAL IV SCH (09:00)
[2023-11-08] MEDS ORDERED: LIDOCAINE 5% (PATCH) 1 EA PATCH TP PRN (10:00)
[2023-11-08] MEDS ORDERED: CYCLOBENZAPRINE 10 MG TABLET PO PRN ×2 (10:30)
[2023-11-08] MEDS: GABAPENTIN 400 MG CAPSULE PO SCH (12:16)
[2023-11-08] MEDS: TRIHEXYPHENIDYL HCL 2 MG TABLET PO SCH (12:17)
[2023-11-08] MEDS: BACLOFEN (10 MG) 10 MG TABLET PO SCH (12:17)
[2023-11-08] MEDS ORDERED: BACLOFEN (10 MG) 10 MG TABLET PO SCH (13:00)
[2023-11-08] MEDS ORDERED: PREGABALIN 100 MG CAPSULE PO SCH (17:00)
[2023-11-08] MEDS ORDERED: RIVAROXABAN 10 MG TABLET PO SCH (17:00)
[2023-11-08] MEDS ORDERED: LORAZEPAM 0.5 MG TABLET PO SCH (18:00)
[2023-11-08] MEDS ORDERED: LEVETIRACETAM SOL (5 ML) 100 MG/ML UDC GT SCH (21:00)
== END 2023-11-08 15:34 | disposition home or self-care (01) | DRG 47 ==
LOC: ER 02:07 → TELE 15:01
PROVIDERS: ADMIT Nurse Practitioner Acute Care; ATTEND Nurse Practitioner Acute Care
DX: G45.9 Transient cerebral ischemic attack, unspecified (principal); G93.41 Metabolic encephalopathy; G70.9 Myoneural disorder, unspecified; E78.5 Hyperlipidemia, unspecified; I25.10 Atherosclerotic heart disease of native coronary artery without angina pectoris; I25.2 Old myocardial infarction; Z86.711 Personal history of pulmonary embolism; Z79.01 Long term (current) use of anticoagulants; I69.822 Dysarthria following other cerebrovascular disease; G24.9 Dystonia, unspecified; G89.4 Chronic pain syndrome; R73.03 Prediabetes; R29.702 NIHSS score 2; Z86.61 Personal history of infections of the central nervous system
CPT/HCPCS: 36415; 70450-TC; 71045-TC; 80048-TC; 80053-TC; 80061-TC; 82140-TC; 82607-TC; 83605-TC; 83735-TC; 83880; 83921; 84100-TC; 84443-TC; 84484-TC; 85025-TC; 85652-TC; 85730-TC; 92526; 92611-TC; 97112-TC; 97116-TC; 97530-TC; A4223; G0378; G0480; J1200; J1650; J1953; J2060; J7030; J7050

== ENCOUNTER 2023-12-07 10:06 | Emergency (ER) | payer MEDICAID ==
[~2023-12-07] VITALS: Ht 165.1 cm; Wt 68.0 kg
[~2023-12-07 10:06] MED LIST changes: -ATOR20TA PO; +ATOR40TA PO; -CEFT1FRO2 IV; -KETO10TA2 PO; +LISI10TA29 PO; +LORA-258 PO; -LORA-259 PO; +PREG-59 PO; -PREG50CA PO; -TIZA4TAB5 PO
[2023-12-07 10:21] VITALS: BP 133/75; TEMP 98.2
[2023-12-07] MEDS ORDERED: KETOROLAC TROMETHAMINE 15 MG/ML VIAL ONE (10:35)
[2023-12-07] MEDS ORDERED: ACET-2605 PO (10:36)
[2023-12-07] MEDS ORDERED: LIDOCAINE 5% (PATCH) 1 EA PATCH TP ONE (10:36)
[2023-12-07] MEDS ORDERED: CYCLOBENZAPRINE 10 MG TABLET ONE (10:36)
[2023-12-07] MEDS: LIDOCAINE 5% (PATCH) 1 EA PATCH TP STA (10:42)
[2023-12-07] MEDS: KETOROLAC TROMETHAMINE 15 MG/ML VIAL IM ONE (10:43)
[2023-12-07] MEDS: CYCLOBENZAPRINE 10 MG TABLET PO ONE (10:43)
[2023-12-07 10:45] VITALS: O2SAT 98
== END 2023-12-07 10:46 | disposition home or self-care (01) ==
LOC: ER 10:09
DX: G89.29 Other chronic pain (principal); M54.2 Cervicalgia; I10 Essential (primary) hypertension; E78.5 Hyperlipidemia, unspecified; Z79.899 Other long term (current) drug therapy; Z98.890 Other specified postprocedural states
CPT/HCPCS: 99283; 96372; J1885

== ENCOUNTER 2024-02-16 09:28 | Emergency (ER) | payer MEDICAID ==
[~2024-02-16] VITALS: Ht 152.4 cm; Wt 62.1 kg
[~2024-02-16 09:28] MED LIST changes: +ACET-2605 PO
[2024-02-16 09:47] VITALS: BP 121/76; TEMP 97.8
[2024-02-16] MEDS ORDERED: CARI350T PO (10:02)
[2024-02-16] MEDS ORDERED: IBUP-1955 PO (10:02)
[2024-02-16] MEDS ORDERED: IBUPROFEN 600 MG TABLET ONE (10:04)
[2024-02-16] MEDS: IBUPROFEN 600 MG TABLET PO ONE (10:06)
[2024-02-16 10:25] VITALS: O2SAT 100
== END 2024-02-16 10:26 | disposition home or self-care (01) ==
LOC: ER 09:32
DX: M54.2 Cervicalgia (principal); G89.29 Other chronic pain; I10 Essential (primary) hypertension; E78.5 Hyperlipidemia, unspecified

== ENCOUNTER 2024-08-29 08:24 | Emergency (ER) | payer MEDICAID ==
[~2024-08-29] VITALS: Ht 160 cm; Wt 65.8 kg
[2024-08-29 08:58] VITALS: BP 143/86; TEMP 98.1
[2024-08-29 09:15] VITALS: O2SAT 99
[2024-08-29] MEDS ORDERED: CYCL10TA9 PO (09:54)
[2024-08-29] MEDS ORDERED: IBUP-1955 PO (09:54)
[2024-08-29] MEDS ORDERED: KETOROLAC TROMETHAMINE 15 MG/ML VIAL ONE (10:00)
[2024-08-29] MEDS ORDERED: HYDROCODONE/APAP 5/325MG TABLET ONE (10:01)
[2024-08-29] MEDS: KETOROLAC TROMETHAMINE 15 MG/ML VIAL IM ONE (10:07)
[2024-08-29] MEDS: HYDROCODONE/APAP 5/325MG TABLET PO ONE (10:07)
== END 2024-08-29 10:10 | disposition home or self-care (01) ==
LOC: ER 08:24
DX: G89.4 Chronic pain syndrome (principal); M54.2 Cervicalgia; E11.9 Type 2 diabetes mellitus without complications; E78.5 Hyperlipidemia, unspecified; I10 Essential (primary) hypertension; I25.2 Old myocardial infarction; Z79.899 Other long term (current) drug therapy; Z86.61 Personal history of infections of the central nervous system; Z87.09 Personal history of other diseases of the respiratory system; Z87.39 Personal history of other diseases of the musculoskeletal system and connective tissue
CPT/HCPCS: 99283; 96372; J1885